=== PATIENT | female | born 1995 | race Caucasian/White ===

== ENCOUNTER 2018-09-13 05:31 | Outpatient (CLI) | payer BC ==
[~2018-09-13] VITALS: Ht 165.1 cm; Wt 104.3 kg
[2018-09-13] MEDS ORDERED: ASPI-789 PO (09:37)
[2018-09-13] MEDS ORDERED: FAMO20TA3 PO (09:37)
[2018-09-13] MEDS ORDERED: COLE1TAB PO (09:37)
[2018-09-14] MEDS ORDERED: ACET-77 PO (09:19)
[2018-09-14] MEDS ORDERED: OXC5T PO (09:19)
[2018-09-14] MEDS ORDERED: NAPR-1067 PO (09:19)
[2018-09-14] MEDS ORDERED: PROM25TA14 PO (09:26)
== END 2018-09-13 10:09 | disposition home or self-care (01) ==
LOC: PREOP 05:31
PROVIDERS: ATTEND Obstetrics & Gynecology
DX: Z01.818 Encounter for other preprocedural examination (principal)

== ENCOUNTER 2018-09-14 06:08 | Day surgery (SDC) | payer BC ==
[~2018-09-14] VITALS: Ht 165.1 cm; Wt 104.3 kg
[2018-09-14] VITALS (10 sets, daily range): BP systolic 118–142; BP diastolic 72–88
[~2018-09-14 06:08] MED LIST: ASPI-789 PO; COLE1TAB PO; FAMO20TA3 PO
--- OUTSIDE RECORDS SUMMARY | 2018-09-14 06:12 | XMS REPORT ---
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 Apr, 0 89288804 Problem Allergic urticaria 708.0 Apr, 0 91351468 Problem Tobacco use 305.1 Dec, 0 947091071 Problem Knee MCL sprain 844.1 14 Sep, 2012 0 31742140 Problem History of seasonal allergies Z88.9 Jul, 0 961179186 Problem Knee MCL sprain S83.419A 14 Sep, 2012 0 03266286 Problem History of seasonal allergies V15.09 Jul, 0 Problem Breakthrough bleeding on OCPs 626.6 Jun, 0 81162025 Problem Dysmenorrhea N94.6 Active 751191886 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 Apr, 0 726301534 Problem Irregular menses N92.6 Active 70383347 Problem Allergic angioedema 995.1 Apr, 0 498168553 Problem Breakthrough bleeding on OCPs N92.1 Jun, 0 01585260 Problem Patellofemoral pain syndrome M22.2X9 Dec, 0 274154880 Problem Dyspareunia in female N94.10 Active 17632165 Problem Cervical motion tenderness N94.9 Active 446243632 ALLERGIES Substance Reaction Event Type Date Status Ibuprofen hives Drug Allergy Jun, Active Amoxicillin hives Drug Allergy Jun, Active ENCOUNTERS Encounter Location Date Diagnosis [facility] [address] [place] [phone] Jun, Pelvic inflammatory disease N73.9 ; Irregular menses N92.6 ; Dysmenorrhea N94.6 ; Pelvic pain in female R10.2 ; Vaginal dryness N89.8 ; Dyspareunia in female N94.10 and Cervical motion tenderness N94.9 [facility] [address] [facility] [place] [address] May, Abdominal pain, unspecified abdominal location R10.9 ; Nausea R11.0 and Chronic diarrhea K52.9 [facility] [id number], [place] [address] Apr, [facility] [id number] [place] [phone] Apr, [place] [id number] [place] [phone] Mar, [place] [address] [id number] [place] [phone] Mar, IMMUNIZATIONS No Known Immunizations SOCIAL HISTORY Never Assessed REASON FOR VISIT Period concerns, Painful Carrick, Admits that her pain is much worse during her period time., With sex, the pain is there during the entire process, but muc h worse with deep thrusting and after having an orgasm. Denies taking anything to relieve symptoms. PLAN OF CARE Activity Details Follow Up prn Reason: VITAL SIGNS Height 65.5 in 2018-06-09 Weight 232 lbs 2018-06-09 Heart Rate 103 bpm 2018-06-09 Oximetry 98 % 2018-06-09 BMI 38.02 kg/m2 2018-06-09 Blood pressure systolic 116 mmHg 2018-06-09 Blood pressure diastolic 70 mmHg 2018-06-09 MEDICATIONS Medication Instructions Dosage Frequency Start Date End Date Duration Status Intrarosa 6.5 MG Vaginal Once a day 1 vaginal insert at bedtime 24h Jun, 30 day(s) Active Colestipol HCl 1 GM Orally 2 times a day 1 tablet 12h 20 May, 2018 90 days Active Sprintec 28 0.25-35 MG-MCG Orally Once a day 1 tablet 24h Jun, 84 days Active Excedrin Migraine 250-250-65 MG Orally PRN 2 tablets 30 day(s) Unknown Pepcid 20 MG Orally PRN 1 tablet at bedtime 30 day(s) Unknown Zofran 8 MG Orally every 8 hours prn nausea 1 tablet May, 7 days Unknown Zithromax 500 MG Orally one time 2 tablet Jun, 1 days Active RESULTS No Results PROCEDURES Procedure Date Ordered Result Body Site N.GONORRHOEAE, DNA, AMP PROB June 09, 2018 CHYLMD TRACH, DNA, AMP PROBE June 09, 2018 INSTRUCTIONS MEDICATIONS ADMINISTERED No Known Medications MEDICAL (GENERAL) HISTORY Type Description Date Medical History acid reflux Medical History migraine headaches Surgical History cholecystectomy
--- OUTSIDE RECORDS SUMMARY | 2018-09-14 06:13 | XMS REPORT | Continuity of Care Document ---
Author Organization Unknown Address Unknown Allergies Active Description Code Type Severity Reaction Onset Reported/Identified Relationship to Patient Clinical Status Yes ibuprofen Drug N/A Hives Yes ibuprofen Drug N/A N/A Yes ibuprofen Drug N/A Hives Yes ibuprofen Drug N/A N/A Medications Medication Packaging Start Date Stop Date Route Dosage Sig ethinyl estradiol-norethindrone 07/21/2016 PO Nortrel 1/35 oral tablet ondansetron 07/21/2016 08/20/2016 SL 8 mg / 1 tab omeprazole 08/21/2016 08/27/2016 PO 40 mg / 1 cap omeprazole 08/27/2016 09/23/2016 PO 40 mg / 1 cap docusate-senna 09/15/2016 09/22/2016 PO Senokot S 50 mg-8.6 mg oral tablet omeprazole 09/23/2016 PO 40 mg / 1 cap Problems Date Dx Coded Attending Type Code Diagnosis Diagnosed By 07/21/2016 eNelima Davila Final R10.11 Right upper quadrant pain 08/22/2016 Zhou Polo Final F17.210 Nicotine dependence, cigarettes, uncomplicated 08/22/2016 Zhou Polo Final K29.70 Gastritis, unspecified, without bleeding 08/22/2016 Zhou Polo Final K31.9 Disease of stomach and duodenum, unspecified 08/22/2016 Zhou Polo Final R10.11 Right upper quadrant pain 08/22/2016 Zhou Polo Final R10.13 Epigastric pain 08/22/2016 Zhou Polo Final R11.0 Nausea 09/15/2016 Shahram Mead Final E66.9 Obesity, unspecified 09/15/2016 Shahram Mead Final F17.210 Nicotine dependence, cigarettes, uncomplicated 09/15/2016 Shahram Mead Admitting K80.50 Calculus of bile duct without cholangitis or cholecystitis w 09/15/2016 Shahram Mead Final K81.1 Chronic cholecystitis 09/15/2016 Shahram Mead Final Z68.30 Body mass index (BMI) 30.0-30.9, adult Procedures Code Description [place] [address] Intravenous infusion, hydration; each ad NATONY GOINS 07/21/2016 70924 Therapeutic, prophylactic, or diagnostic ANTONY GOINS 07/21/2016 22631 Therapeutic, prophylactic, or diagnostic ANTONY GOINS 07/21/2016 76140 Therapeutic, prophylactic, or diagnostic BRISEIDA ANTONY 07/21/2016 82148 Emergency department visit for the evalu ANTONY GOINS 07/21/2016 90372 Esophagogastroduodenoscopy, flexible, tr ANTONY GOINS 08/22/2016 30913 Laparoscopy, surgical; cholecystectomy ANTONY GOINS 09/15/2016 Results Test Result Range COMPREHENSIVE METABOLIC PANEL - 07/21/16 13:05 Sodium 141 mmol/L 135-145 Potassium 4.1 mmol/L 3.6-5.0 Chloride 104 mmol/L 101-111 Carbon Dioxide, Total 22 mmol/L 21-31 Glucose Level 101 mg/dL 70-100 BUN 8 mg/dL 6-20 Creatinine 0.5 mg/dL 0.5-1.2 Calcium 9.3 mg/dL 8.5-10.5 Total Protein 7.8 g/dL 6.0-8.0 Albumin 4.5 g/dL 3.2-5.5 Alkaline Phosphatase 70 U/L 42-121 AST (SGOT) 15 U/L 10-42 ALT (SGPT) 12 U/L 10-60 Total Bilirubin 0.2 mg/dL 0.2-1.0 Calculated GFR >60.0 mL/min/1.73sq >60 Anion Gap 15 mmol/L NRG LIPASE - 07/21/16 13:05 Lipase 38 U/L 8-57 URINALYSIS, CULTURE IF INDICATED - 07/21/16 13:18 Color, UA LIGHT YELLOW YELL Clarity, Urine CLEAR Clear Glucose, Urine NEGATIVE mg/dL NEG Bilirubin, UA NEGATIVE NEG Ketones, UA NEGATIVE mg/dL NEG Specific [place], UA 1.020 1.003-1.030 Blood, UA NEGATIVE NEG pH, UA 8.0 5.0-9.0 Protein, UA NEGATIVE mg/dL NEG Urobilinogen, UA NORMAL mg/dL NORM Nitrites, UA NEGATIVE NEG Leukocyte Esterase, UA NEGATIVE NEG Urine Culture Indicated NO CULTURE NEEDED NOCULT HCG, URINE QUAL - 07/21/16 13:18 HCG, Urine Qual NEGATIVE NEG Specific [place], UA 1.020 1.003-1.030 Surgical Pathology - 08/22/16 11:33 SURGICALPATH Diagnosis over-read by Ian Best MD. NRG HCG, URINE QUAL - 09/15/16 06:23 HCG, Urine Qual NEGATIVE NEG Specific [place], UA 1.038 1.003-1.030 Surgical Pathology - 09/15/16 10:32 SURGICALPATH Diagnosis over-read by Manuel Moncada MD. NRG GC/CHLAMYDIA (SWAB OR URINE)-RAPID - 06/09/18 16:31 CHLAMYDIA TRACHOMATIS RNA, TMA NOT DETECTED NOT DETECTED NEISSERIA GONORRHOEAE RNA, TMA NOT DETECTED NOT DETECTED COMMENT NRG Encounters ACCT No. Visit Date/Time Discharge Status Pt. Type Provider Facility Loc./Unit Complaint [id number] 08/20/2018 08:00:00 08/20/2018 23:59:59 CLS Outpatient ANTHONY BRUCE [facility] [id number] 06/09/2018 14:15:00 Document Registration [id number] 09/23/2016 15:28:13 09/23/2016 23:59:59 CLS Outpatient Shahram Mead General Surgery [facility] post lap juan miguel 09/15/16 [id number] 08/22/2016 09:03:50 08/22/2016 23:59:59 CLS Outpatient Shahram Mead General Surgery [facility] GB- FU [id number] 08/21/2016 13:51:58 08/21/2016 23:59:59 CLS Outpatient Zhou [facility]o [facility] New Consult/bloody stool/ABD pain [id number] 08/05/2016 15:38:00 08/05/2016 23:59:59 CLS Outpatient Danilo General Surgery [facility] [id number] 08/01/2016 00:00:00 08/01/2016 23:59:59 CLS Outpatient Scanned Documents [id number] 07/23/2016 10:32:24 07/23/2016 23:59:59 CLS Outpatient Shahram Mead General Surgery [facility] gallbladder [id number] 09/15/2016 05:52:00 09/15/2016 23:59:00 DIS Outpatient [facility] HEATHER LS JUAN MIGUEL [id number] 08/22/2016 06:46:00 08/22/2016 23:59:00 DIS Outpatient Zhou Polo [facility] ENC EGD [id number] 07/29/2016 13:07:00 07/30/2016 11:46:00 DIS Outpatient [facility] RAD NM HEPATOBILIARY-GALLBLADDER E [id number] 07/21/2016 12:09:00 07/21/2016 15:39:00 DIS Emergency Neelima Davila [facility] ER Abdominal Pain
[2018-09-14] MEDS ORDERED: LIDOCAINE PF 2% 5 ML (XYLOCAINE) VIAL ONE (06:38)
[2018-09-14] MEDS ORDERED: fentaNYL INJECTION 100 MCG/2 ML AMP ONE ×2 (06:38→08:14)
[2018-09-14] MEDS ORDERED: ONDANSETRON 4 MG/2 ML (SDV) Z0FRAN ONE (06:38)
[2018-09-14] MEDS ORDERED: MIDAZOLAM 2 MG/2 ML (VERSED) VIAL ONE (06:38)
[2018-09-14] MEDS ORDERED: ROCURONIUM 10 MG/ML 5 ML SYRINGE IV ONE (06:38)
[2018-09-14] MEDS ORDERED: DEXAMETHASONE 10 MG/ML (DECADRON) 1 ML VIAL ONE (06:38)
[2018-09-14] MEDS ORDERED: proPOfol 200 MG/20 ML (DIPRIVAN) VIAL IV ONE (06:38)
[2018-09-14] MEDS ORDERED: SCOPOLAMINE 1.5 MG (TRANSDERM-SCOP) PATCH TOP ONE (06:45)
[2018-09-14] MEDS ORDERED: ONDANSETRON 4 MG/2 ML (SDV) Z0FRAN IV ONE (06:45)
[2018-09-14] MEDS ORDERED: ceFAZolin INJECTION 1,000 MG in WATER (STERILE) FOR INJECTION 10 ML IV ONE (06:45)
[2018-09-14] MEDS ORDERED: FAMOTIDINE 20MG/2ML IV (PEPCID) IV ONE (06:45)
--- NOTE | 2018-09-14 06:46 | History & Physical-Surgical ---
HPO-Surgical History of Present Illness Chief Complaint: Chronic pelvic pain, not improved with conservative treatments Diagnosis/Surgical Indication: ENDOMETRIOSIS Procedure: LAPAROSCOPY-RESECTION OF ENDOMETRIOSIS, AMPARO, OIP, POSS APPY, CHROMOTUBATION Date of Surgery: Sep 14, 2018 Weight (Pounds): 230 Weight (Ounces): 0.0 Height (Feet): 5 Height (Inches): 5.00 Allergies and Home Medications Allergies Coded Allergies: amoxicillin (Verified Allergy, Mild, HIVES, 09/13/18) ibuprofen (Verified Allergy, Mild, HIVES, 09/13/18) Home Medications Aspirin/Acetaminophen/Caffeine 1 Each Tablet, 2 EACH PO Q6-8HR PRN for Headache, (Reported) Colestipol HCl 1 Gm Tablet, 1 GM PO DAILY, (Reported) Famotidine 20 Mg Tablet, 20 MG PO BID PRN for HEARTBURN, (Reported) Patient Home Medication List Home Medication List Reviewed: Yes Past Mkurcfx-Wuublu-Rapsdo Hx Patient Social History Marrital Status: Number of Children: 0 Number of living children: 0 Employed/Student: employed Alcohol Use: Denies Use Smoking Status: Light Tobacco Smoker Cigaretts per day: 4 Type Used: Cigarettes 2nd Hand Smoke Exposure: Yes Recent Foreign Travel: No Contact w/other who traveled: No Recent Hopitalizations: No Seasonal Allergies Seasonal Allergies: Yes Surgeries Yes (WISDOM TEETH ) Gallbladder Respiratory No Cardiovascular No Neurological Yes Headaches /Migraines Reproductive System Sexually Transmitted Disease: No HIV/AIDS: No Female Reproductive Disorders: Menstrual Problems, Endometriosis, Ovarian Cyst Genitourinary Yes Kidney Stones, UTI-Chronic Gastrointestinal Yes Gastroesophageal Reflux, Chronic Diarrhea Musculoskeletal No Endocrine History of Endocrine Disorders: No HEENT History of HEENT Disorders: No Loss of Vision: Bilateral Hearing Impairment: Denies Cancer No Psychosocial History of Psychiatric Problem: Yes Behavioral Health Disorders: Anxiety, Depression Integumentary History of Skin or Integumenta: No Blood Transfusions History of Blood Disorders: Yes (HX ANEMIA) Adverse Reaction to a Blood Tr: No (N/A) Exam Vital Signs See RNo Notes General Appearance: Alert, Oriented X3 Respiratory: Clear to Auscultation, Normal Air Movement Cardiovascular: Regular Rate, Normal S1, Normal S2 Abdominal: Normal Bowel Sounds Assessment/Plan Assessment and Plan Chronic pelvic pain/endometriosis Plan laparoscopy with resection endometriosis and OIP. This may include lysis of adhesions, appendectomy, etc Will plan chromotubation due to desire for . Risks of surgery include bleeding, infection, injury to bowel, bladder and ureter. There is a risk of anesthesia and blood clots. preoperative antibiotics and prophylactic SVDs will be used. She had severe nausea and emesis following her cholecystectomy and required an overnight stay. Discussed this at preop with anesthesia. Has allergy to amoxicillin and ibuprofen but can take ancef/cephalosporins and naproxen. Will uses perioperative toradol and then send home with naproxen. Consents have been signed. Admission Diagnosis Admission Status: Other (Same Day Surgery) GUTIERREZ PALMA DO Sep 14, 2018 06:46
[2018-09-14 06:55] LABS: BASOPHILS % (AUTO) 0 % (0-10); EOSINOPHILS # (AUTO) 0.2 10^3/uL (0.0-0.3); EOSINOPHILS % (AUTO) 2 % (0-10); HEMATOCRIT 36 % (35-52); HEMOGLOBIN 11.7 G/DL (11.5-16.0); LYMPHOCYTES # (AUTO) 3.3 X 10^3 (1.0-4.0); LYMPHOCYTES % (AUTO) 26 % (12-44); MEAN CORPUSCULAR HEMOGLOBIN 21 PG (25-34); MEAN CORPUSCULAR HGB CONC 33 G/DL (32-36); MEAN CORPUSCULAR VOLUME 65 FL (80-99); MEAN PLATELET VOLUME 9.2 FL (7.4-10.4); MONOCYTES # (AUTO) 0.6 X 10^3 (0.0-1.0); MONOCYTES % (AUTO) 5 % (0-12); NEUTROPHILS # (AUTO) 8.5 X 10^3 (1.8-7.8); NEUTROPHILS % (AUTO) 67 % (42-75); PLATELET COUNT 441 10^3/uL (130-400); RED CELL DISTRIBUTION WIDTH 15.4 % (10.0-14.5); WHITE BLOOD COUNT 12.7 10^3/uL (4.3-11.0)
[2018-09-14] MEDS: LACTATED RINGERS 1,000 ML IV PRN ×2 (07:01→08:30)
--- NOTE | 2018-09-14 07:15 | NUR ---
PHUONG RT ON FLOOR AND INSTRUCT ON INCENTIVE SPIROMETRY Addendum: 09/14/18 at 0745 by GRICELDA CHILD RN TIME SHOULD BE 0734 NOT 0757
[2018-09-14] MEDS ORDERED: BUPIVACAINE 0.25% 30 ML (SENSORCAINE) VIAL ONE (07:20)
--- NOTE | 2018-09-14 07:33 | Progress Note-Pre Operative ---
Pre-Operative Progress Note H&P Reviewed The H&P was reviewed, patient examined and no changes noted. Date Seen by Provider: Sep 14, 2018 Time Seen by Provider: 07:25 Date H&P Reviewed: Sep 14, 2018 Time H&P Reviewed: 07:00 Pre-Operative Diagnosis: chronic pelvic pain, endometriosis GUTIERREZ PALMA DO Sep 14, 2018 07:32
--- NOTE | 2018-09-14 07:36 | NUR ---
DR PALMA ON FLOOR AND THIS RN VERIFIED THAT CONSENT SHOULD HAVE APPENDECTOMY ON IT AND THAT PATIENT IS ALLERGIC TO AMOXICILLIN AND ANCEF 1G ORDERED. DR. PALMA GAVE VERBAL ORDER THAT APPENDECTOMY IS TO BE ON CONSENT AND SPOKE WITH PATIENT ABOUT IT WELL GAVE VERBAL ORDER THAT PATIENT MAY HAVE ANCEF 1G.
[2018-09-14] MEDS ORDERED: METHYLENE BLUE 0.5% (PROVAYBLUE) 50 mg/10 ml vial IV ONE (07:44)
[2018-09-14] MEDS ORDERED: GLYCOPYRROLATE 0.2 MG/ML (ROBINUL) 2 ML VIAL ONE ×2 (08:11→08:44)
[2018-09-14] MEDS ORDERED: SEVOFLURANE (ULTANE) 15 ML INHAL SOLN ONE ×3 (08:11→08:46)
[2018-09-14] MEDS ORDERED: NEOSTIGMINE 1 MG/ML 5 ML SYRINGE ONE (08:44)
[2018-09-14] MEDS ORDERED: KETOROLAC 30 MG/ML VIAL IVP ONE (08:45)
--- NOTE | 2018-09-14 08:50 | Operative Report ---
Operative Report Date of Procedure/Surgery Sep 14, 2018 Surgeon (s) GUTIERREZ PALMA DO Environmental Remediation Consultant (s): NA Post-Operative Diagnosis stage 1 endometriosis Procedure Performed Laparoscopy with resecetion/ fulgaration of endometrial implant, chromopertubation Description of Procedure Anesthesia Type: General Estimated blood loss (mL): minimal Specimen(s) collected/removed None Description of the Procedure With informed consent the patient was taken to the operating room where general anesthesia was found to be adequate. She was prepped and draped in the usual sterile fashion in the dorsolithotomy position. A catheter was placed in the bladder to be removed in the recovery room. A speculum was placed in the vagina and the cervix was grasped with a tenaculum and the cervix was gently dilated with Shan dilators and a Vanessa uterine manipulator was placed in the uterus to provide a means of manipulation of the uterus. Attention was now turned to the abdomen and the umbilicus was injected with 0.25% Marcaine and a 4 mm skin incision was made with a scalpel. The Veress needle was inserted and intraabdominal placement was confirmed with a saline drop test and a drop in pressure. The abdomen was then insufflated with warmed CO2 gas to a maximum pressure of 15 mmHg. The 5 mm trocar under direct visualiz ation with the PersistIQview. The camera was now inserted and a survey of the pelvis was done. The below mentioned findings were noted. I then placed two additional trocars in the left lower quadrant, lateral to the rectus muscles and avoiding the inferior epigastric vessels. I then used the Harmonic scalpel to fulgurate the endometriosis on the left uterosacral ligament and the culdesac. I could not elevated the implant on the uterosacral enough to excise it because of scarring. There was not any adhesions noted. the appendix appeared normal. Now a chromotubation was done. The left tube spilled immediately. The right tube seemed to have a blockage as it spilled to the mid tube, but then stopped. However, when I temporarily occluded the left tube with a grasper, the right tube eventually spilled, suggesting a stricture or spasm of the tube. The pelvis was now irrigated. There was good hemostasis. The gas and instruments were removed from the abdomen and the skin closed with Dermabond. The instruments were removed from the uterus and vagina. There was minimal bleeding. Bandages were placed on the abdominal incisions. The patient was awakened to the recovery room in stable condition. Findings of the Procedure endometrial implants and "cigarette jorge" in the culdesac and on the left uterosacral ligament. Benign perituabal cysts Left tubal patency Right tube did not initially appear patent, but then spilled dye once the left tube was temporarily occluded Allergies and Home Medications Allergies Coded Allergies: ibuprofen (Verified Allergy, Mild, HIVES, 09/13/18) amoxicillin (Verified Allergy, Unknown, 09/14/18) swollen lips, hives Home Medications Acetaminophen 500 Mg Tablet, 1,000 MG PO Q8HR Prescribed by: GUTIERREZ PALMA on 09/14/18918 Aspirin/Acetaminophen/Caffeine 1 Each Tablet, 2 EACH PO Q6-8HR PRN for Headache, (Reported) Colestipol HCl 1 Gm Tablet, 1 GM PO DAILY, (Reported) Famotidine 20 Mg Tablet, 20 MG PO BID PRN for HEARTBURN, (Reported) Naproxen Sodium 550 Mg Tablet, 550 MG PO BID Prescribed by: GUTIERREZ PALMA on 09/14/18918 Oxycodone Hcl 5 Mg Tab, 5 MG PO Q4HR PRN for PAIN-SEVERE Prescribed by: GUTIERREZ PALMA on 09/14/18918 Promethazine HCl 25 Mg Tablet, 25 MG PO Q6H PRN for NAUSEA/VOMITING Prescribed by: GUTIERREZ PALMA on 09/14/18 09 Patient Home Medication List Home Medication List Reviewed: GUTIERREZ Perea DO Sep 14, 2018 08:50
[2018-09-14] MEDS ORDERED: HYDROmorphone 2 MG/ML VIAL (DILAUDID) IV ONE (09:15)
[2018-09-14] MEDS ORDERED: MEPERIDINE (DEMEROL) INJ 50 MG/ML IVP ONE (09:15)
[2018-09-14] MEDS ORDERED: PROMETHAZINE INJ 25 MG/ML (PHENERGAN) AMP IVP ONE (09:15)
[2018-09-14] MEDS ORDERED: ONDANSETRON 4 MG/2 ML (SDV) Z0FRAN IVP PRN (09:15)
[2018-09-14] MEDS ORDERED: morphine INJ 10 MG/ML 1ML (SYR OR VIAL) IVP ONE (09:15)
[2018-09-14] MEDS ORDERED: morphine INJ 10 MG/ML 1ML (SYR OR VIAL) ONE (09:19)
[2018-09-14] MEDS ORDERED: NAPR-1067 PO (09:19)
[2018-09-14] MEDS ORDERED: OXC5T PO (09:19)
[2018-09-14] MEDS ORDERED: ACET-77 PO (09:19)
--- NOTE | 2018-09-14 09:21 | Discharge Inst-Women's Service ---
Discharge Inst-Women's Serv Depart Medication/Instructions New, Converted or Re-Newed RX: RX on Chart Final Diagnosis endometriosis chronic pelvic pain patent tubes peritubal cysts Consults/Follow Up Additional Follow Up: Yes (1 -[address] Gonzalez) Activity Activity: Activity as Tolerated Driving Instructions: No Driving for 24 Hours NO SMOKING: NO SMOKING Nothing Inside Vagina: No Douching, No [place], No Tampons Diet Discharge Diet: No Restrictions Symptoms to Report to : Bleeding Excessive, Pain Increased, Fever Over 101 Degrees F, Vaginal Bleeding Increase, Pain/Pressure in Shoulder, Vaginal Discharge Foul For Any Problems or Questions: Contact Your Physician Skin/Wound Care Infection Signs and Symptoms: Increased Redness, Foul Odor of Wound, Increased Drainage, Skin Itchy or Has a Rash, Increased Swelling, Temperature Above 101 F Operative Area Clean and Dry: Keep Incision Clean/Dry, You May Remove Bandage (Remove after three days, or if soiled or wet) Stitches/Sohan/Dermabond: Dermabond Bathing Instructions: GUTIERRZE Larose DO Sep 14, 2018 09:21
[2018-09-14] MEDS ORDERED: PROM25TA14 PO (09:26)
[2018-09-14] MEDS ORDERED: ACETAMINOPHEN 500 MG TAB (TYLENOL) PO SCH (14:00)
[2018-09-14] MEDS ORDERED: NAPROXEN 250 MG (NAPROSYN) TABLET PO SCH (15:00)
--- NOTE | 2018-09-14 15:00 | Anesthesia-General Post-Op ---
General Patient Condition Mental Status/LOC: Same as Preop Cardiovascular: Satisfactory Nausea/Vomiting: Absent Respiratory: Satisfactory Pain: Controlled Complications: Absent Post Op Complications Complications None Follow Up Care/Instructions Patient Instructions None needed. Anesthesia/Patient Condition Patient Condition Patient was seen this morning after the procedure and she was doing well, no complaints, stable vital signs, no apparent adverse anesthesia problems. DERECK CLEMENTE DO Sep 14, 2018 15:00
== END 2018-09-14 11:15 | disposition home or self-care (01) ==
LOC: SDC 06:08
PROVIDERS: ATTEND Obstetrics & Gynecology
DX: N80.0 Endometriosis of uterus (principal); N80.3 Endometriosis of pelvic peritoneum; Z88.1 Allergy status to other antibiotic agents; F17.210 Nicotine dependence, cigarettes, uncomplicated; K21.9 Gastro-esophageal reflux disease without esophagitis; K52.9 Noninfective gastroenteritis and colitis, unspecified; Z87.442 Personal history of urinary calculi; G43.909 Migraine, unspecified, not intractable, without status migrainosus; F41.9 Anxiety disorder, unspecified; F32.9 Major depressive disorder, single episode, unspecified; E66.9 Obesity, unspecified; Z68.38 Body mass index [BMI] 38.0-38.9, adult; Z79.82 Long term (current) use of aspirin; Z79.899 Other long term (current) drug therapy; Z11.2 Encounter for screening for other bacterial diseases
CPT/HCPCS: 36415; 84703; 85025; 86850; 86900; 86901; 87081; 94664

== ENCOUNTER → 2018-12-23 | Outpatient (CLI) ==
[~2018-12-23] MED LIST changes: +ACET-77 PO; +NAPR-1067 PO; +OXC5T PO; +PROM25TA14 PO
== END ==
LOC: LABNPT 12:05 → MERGE 12:05
PROVIDERS: ATTEND Obstetrics & Gynecology
DX: O26.899 Other specified pregnancy related conditions, unspecified trimester (principal); R50.9 Fever, unspecified; Z3A.00 Weeks of gestation of pregnancy not specified

== ENCOUNTER → 2019-02-09 | Outpatient (CLI) | payer BC ==
--- NOTE | 2019-02-09 12:28 | Diagnostic Imaging Report ---
INDICATION: survey. TECHNIQUE: Multiple real-time grayscale images were obtained over the gravid uterus. COMPARISON: There are no prior studies available for comparison. FINDINGS: There is a single live fetus in breech presentation. heart motion was noted and a rate of 152 BPM was recorded. There is dilatation of the renal pelvis on the left. The pelvis measures approximately 6 mm (normal 5 mm or less). The reason for the dilatation of the left renal pelvis is not certain. There is no sign of ascites. No other abnormality is noted. The placenta is anterior and there is no previa. The amniotic fluid volume is within normal limits. The growth parameters are fairly uniform. The cervix was identified and measures 3.3 cm in length. IMPRESSION: 1. There is a single live fetus of approximately 20 weeks 3 days gestation +/- 1.5 weeks. The EDC is June 26, 2019. 2. There is slight dilatation of the renal pelvis on the left. The reason for this is not certain. A high-risk OB consult should be considered. 3. There is no other abnormality identified. 4. The growth parameters are fairly uniform. Biometrical measurements are as follows: Biparietal 4.75 cm, age 20 weeks 3 days. Head circumference 17.92 cm, age 20 weeks 3 days. Abdominal circumference 15.25 cm, age 20 weeks 4 days. Femur length 3.19 cm, age 20 weeks 0 days. Sonographic estimate age: 20 weeks 3 days. Sonographic estimated date of delivery: 06/26/2019. Estimated Weight: 341 gm (+/- 50 gm). LMP percentile: 75%. heart rate: 152 beats per minute. number: 1 of 1. Dictated by: Dictated on workstation # [id number]
== END ==
LOC: RAD 09:54
PROVIDERS: ATTEND Nurse Practitioner Women's Health
DX: Z36.89 Encounter for other specified antenatal screening (principal); Z3A.20 20 weeks gestation of pregnancy
CPT/HCPCS: 76805

== ENCOUNTER 2019-03-16 19:34 | Outpatient (CLI) | payer BC ==
[~2019-03-16] VITALS: Ht 165.1 cm; Wt 104.6 kg
--- NOTE | 2019-03-16 19:40 | NUR ---
EVELYN PATE presented to unit via ambulation from ED, accompanied by s.o. and friend, with c/o LEAKING FLUID. EVELYN PATE weighed, gowned, voided, and to bed. EFHM and TOCO applied, VS taken. EVELYN PATE oriented to bed controls, call light, TV, heat, and A/C controls.
--- NOTE | 2019-03-16 19:55 | NUR ---
Pt pants swabbed with amniotest, slightly blue tip noted after swab. Pt assisted to bed. Amniotest performed vaginally, slightly blue tip noted after swab. No visible fluid noted on pad underneath patient or on patient's labia. Had pt bear down and cough, still no fluid noted. Second amniotest performed vaginally. Tip completely yellow after swab. Still no fluid noted. Dr. Jaime informed of results. planning to do spec exam at bedside.
--- NOTE | 2019-03-16 20:06 | NUR ---
Spec exam performed per Dr. Jaime. Wet prep sent to lab.
--- NOTE | 2019-03-16 20:43 | NUR ---
Lab called with results of wet prep. Informed this RN that results are all negative. Results reported to Dr. Jaime. Orders received for discharge.
[2019-03-16] MEDS ORDERED: PREN-142 PO (20:54)
[2019-03-16 21:00] VITALS: BP 129/93
--- NOTE | 2019-03-16 21:05 | NUR ---
Discharge instructions discussed with patient. Encouraged patient to call with any concerns. No questions or concerns voiced at time. Signature sheet signed, placed on chart. Offered wheelchair, denied per pt. Pt ambulating off unit to private vehicle with s.o. and friend at side. No signs of distress noted.
--- NOTE | 2019-03-17 08:10 | Physician Query-Final Dx ---
ADRIENNE WINN 03/17/19 0810: Clinic Account Progress/Dx Physician Query: Please give diagnosis Please include # weeks gestation Date of Service Mar 16, 2019 at 19:34 JUDY GARCIA MD 03/17/19 1735: Clinic Account Progress/Dx DIAGNOSIS: Diagnosis Pulse labor at 26 weeks gestation ADRIENNE WINN Mar 17, 2019 08:10 JUDY KRUGER MD Mar 17, 2019 17:35 POS
== END 2019-03-16 21:05 | disposition home or self-care (01) ==
LOC: WSo 19:34 → LDRP 19:34 → WSo 21:05
PROVIDERS: ATTEND Obstetrics & Gynecology
DX: O60.02 Preterm labor without delivery, second trimester (principal); Z3A.26 26 weeks gestation of pregnancy
CPT/HCPCS: 87210; 99214

== ENCOUNTER 2019-05-09 16:59 | Outpatient (CLI) | payer BC ==
[~2019-05-09] VITALS: Ht 165.1 cm; Wt 109.0 kg
[~2019-05-09 16:59] MED LIST changes: -ACET-77 PO; +ACET-78 PO; +PREN-142 PO
--- NOTE | 2019-05-09 17:05 | NUR ---
EVELYN PATE presented to unit via AMBULATORY from ED, accompanied by , with c/o UPPER ABD PAIN. EVELYN PATE weighed, gowned, voided, and to bed. EF and TOCO applied, VS taken. EVELYN PATE oriented to bed controls, call light, TV, heat, and A/C controls.
[2019-05-09 17:30] VITALS: BP 133/83
--- NOTE | 2019-05-09 17:45 | NUR ---
DR SALEH CALLED BY THIS RN WITH PT REPORT. PT CO CONSTANT SHARP EPIGASTRIC PAIN THAT WRAPS TO MIDDLE OF HER BACK. DENIES UTI S/S, PT ALSO CO NAUSEA TODAY BUT DENIES OTHER PREECLAMPSIA S/S, VSS. URINE DIPSTICK RESULTS READ TO DR SALEH. DR SALEH SAYS TO PO HYDRATE, GIVE PT PERCOCET FOR PAIN, ZOFRAN FOR NAUSEA, AND PEPCID PO. CLEAR LIQUID DIET FOR 24 HRS, FOLLOW UP WITH DR PALMA TOMORROW FOR POSSIBLE ULTRASOUND. ULTRASOUND UNAVAILABLE TO US AFTER HOURS FOR THIS CASE (NOT OB RELATED).
[2019-05-09 17:50] VITALS: BP 128/75
[2019-05-09] MEDS ORDERED: oxyCODONE/APAP 5/325MG (PERCOCET 5) TABLET PO ONE (18:00)
[2019-05-09 18:10] VITALS: BP 133/77
[2019-05-09] MEDS ORDERED: ACETAMINOPHEN 500 MG TAB (TYLENOL) PO NR (18:15)
[2019-05-09] MEDS ORDERED: FAMOTIDINE 20 MG (PEPCID) TABLET PO NR (18:16)
[2019-05-09] MEDS ORDERED: ONDANSETRON 4 MG (ZOFRAN) ORAL DISSOLVE TAB PO NR (18:16)
[2019-05-09 18:35] VITALS: BP 120/60
--- NOTE | 2019-05-09 18:39 | NUR ---
SINCE RN HAD CALLED DR SALEH, UC NOTED 2-[address] SALEH WITH UPDATE TO NOTIFY OF UC. DR SALEH ORDERS TO GIVE IV FLUIDS AND 1 DOSE OF TERB.
[2019-05-09] MEDS ORDERED: LACTATED RINGERS 1,000 ML IV SCH (18:45)
[2019-05-09] MEDS ORDERED: TERBUTALINE INJ 1 MG/ML (BRETHINE) AMP SC NR (18:48)
[2019-05-09 18:55] VITALS: BP 132/81
--- NOTE | 2019-05-09 19:20 | NUR ---
REPORT GIVEN TO ALTA CASTILLO
--- NOTE | 2019-05-09 20:15 | NUR ---
Pt is feeling better and would like to go home. Discharge order received.
--- NOTE | 2019-05-09 20:28 | NUR ---
Discharge instructions given. Verbalized understanding. discharged home with S/O.
--- NOTE | 2019-05-10 08:35 | Physician Query-Final Dx ---
ADRIENNE WINN 05/10/19 0835: Clinic Account Progress/Dx Physician Query: Please give diagnosis Please include # weeks gestation Date of Service May 09, 2019 at 16:59 TEZ SALEH DO 05/11/19 0628: Clinic Account Progress/Dx DIAGNOSIS: Diagnosis Intrauterine at 32 weeks 2. Pelvic Pain 3. Hyperemesis 4. Dehydration ADRIENNE WINN May 10, 2019 08:35 TEZ SALEH DO May 11, 2019 06:28
== END 2019-05-09 20:30 | disposition home or self-care (01) ==
LOC: WSo 16:59 → LDRP 16:59 → WSo 20:30
PROVIDERS: ATTEND Obstetrics & Gynecology
DX: O21.1 Hyperemesis gravidarum with metabolic disturbance (principal); R10.2 Pelvic and perineal pain; Z3A.32 32 weeks gestation of pregnancy
CPT/HCPCS: 96372; 99213

== ENCOUNTER 2019-06-05 | Inpatient (IN) | payer MEDICAID ==
[~2019-06-05] VITALS: Ht 165 cm; Wt 111.4 kg
[2019-06-05] VITALS (72 sets, daily range): BP systolic 96–166; BP diastolic 52–93
--- NOTE | 2019-06-05 00:05 | NUR ---
EVELYN PATE presented to unit via from ED, accompanied by s/o, with c/o CONTRACTIONS 36 05/13. EVELYN PATE weighed, gowned, voided, and to bed. EFHM and TOCO applied, VS taken. EVELYN PATE oriented to bed controls, call light, TV, heat, and A/C controls.
[2019-06-05] MEDS ORDERED: D5 LR IV SOLUTION 1,000 ML IV ONE (00:20)
--- NOTE | 2019-06-05 00:22 | NUR ---
notified of exam. Admission orders received.
[2019-06-05] MEDS ORDERED: MINERAL OIL CONCENTRATE 99.9% 15 ML UDC TOP PRN (00:30)
[2019-06-05] MEDS: D5 LR IV SOLUTION 1,000 ML IV SCH ×2 (00:45→09:39)
[2019-06-05] MEDS ORDERED: VANCOMYCIN 1000 MG/VIAL ONE (00:52)
[2019-06-05] MEDS ORDERED: WATER (STERILE) FOR INJECTION 20 ML ONE (00:53)
[2019-06-05] MEDS ORDERED: NS (IVPB) 250 ML ONE (00:58)
[2019-06-05 01:04] LABS: BASOPHILS % (AUTO) 0 % (0-10); EOSINOPHILS # (AUTO) 0.1 10^3/uL (0.0-0.3); EOSINOPHILS % (AUTO) 1 % (0-10); HEMATOCRIT 31 % (35-52); HEMOGLOBIN 10.1 G/DL (11.5-16.0); LYMPHOCYTES # (AUTO) 3.1 X 10^3 (1.0-4.0); LYMPHOCYTES % (AUTO) 22 % (12-44); MEAN CORPUSCULAR HEMOGLOBIN 21 PG (25-34); MEAN CORPUSCULAR HGB CONC 33 G/DL (32-36); MEAN CORPUSCULAR VOLUME 66 FL (80-99); MEAN PLATELET VOLUME 9.7 FL (7.4-10.4); MONOCYTES # (AUTO) 0.8 X 10^3 (0.0-1.0); MONOCYTES % (AUTO) 6 % (0-12); NEUTROPHILS # (AUTO) 10.4 X 10^3 (1.8-7.8); NEUTROPHILS % (AUTO) 72 % (42-75); PLATELET COUNT 397 10^3/uL (130-400); RED CELL DISTRIBUTION WIDTH 15.8 % (10.0-14.5); WHITE BLOOD COUNT 14.5 10^3/uL (4.3-11.0)
[2019-06-05] MEDS: VANCOMYCIN INJECTION 1,000 MG in NS (IVPB) 250 ML IV SCH ×2 (01:04→12:33)
[2019-06-05 01:28] LABS: BAND NEUTROPHILS 1 %; LYMPHOCYTES % (MANUAL) 23 %; MICROCYTOSIS MODERATE; MONOCYTES % (MANUAL) 3 %; NEUTROPHILS % (MANUAL) 73 %
[2019-06-05 01:35] LABS: BILIRUBIN,URINE NEGATIVE (NEGATIVE); CLARITY,URINE CLEAR; COLOR,URINE YELLOW; GLUCOSE, URINE (UA) NEGATIVE (NEGATIVE); KETONES,URINE NEGATIVE (NEGATIVE); LEUKOCYTE ESTERASE ,URINE 2+ (NEGATIVE); NITRITE,URINE NEGATIVE (NEGATIVE); PROTEIN,URINE NEGATIVE (NEGATIVE)
[2019-06-05] MEDS ORDERED: ONDANSETRON 4 MG/2 ML (SDV) Z0FRAN ONE (01:51)
[2019-06-05] MEDS ORDERED: SUFENTA 0.6MCG/ML BUPIVA 0.125 100 ML ONE (01:52)
--- NOTE | 2019-06-05 01:59 | NUR ---
called to unit. Update given. No new orders received.
[2019-06-05] MEDS: ONDANSETRON 4 MG/2 ML (SDV) Z0FRAN IV PRN ×2 (02:03→06:17)
[2019-06-05] MEDS ORDERED: fentaNYL INJECTION 100 MCG/2 ML AMP ONE (02:10)
[2019-06-05 02:29] LABS: BACTERIA,URINE TRACE /HPF
[2019-06-05] MEDS ORDERED: LACTATED RINGERS 1,000 ML IV ONE (02:48)
[2019-06-05] MEDS: EPIDURAL (SUFENTA 0.6MCG/ML BUPIVA 0.125%) 100 ML BAG EPI PRN ×2 (02:57→10:15)
[2019-06-05] MEDS ORDERED: NALOXONE 0.4 MG/ML 1 ML (NARCAN) VIAL IV PRN ×2 (03:00)
[2019-06-05] MEDS ORDERED: diphenhydrAMINE 50 MG/ML INJ (BENADRYL) IV PRN (03:00)
[2019-06-05] MEDS ORDERED: OXYTOCIN PRE-MIX DRIP 500 ML IV ONE (07:36)
[2019-06-05] MEDS ORDERED: LIDOCAINE/EPI 2% 1:200,00 (XYLOCAINE) 10 ML VIAL ONE (08:09)
[2019-06-05] MEDS: METOCLOPRAMIDE INJ 10 MG/2 ML (REGLAN) IV PRN ×2 (08:10→13:01)
[2019-06-05] MEDS ORDERED: OXYTOCIN PRE-MIX DRIP 500 ML IV SCH (11:02)
--- NOTE | 2019-06-05 12:32 | History & Physical-OB ---
OB - Chief Complaint & HPI Date/Time Date of Admission: Date of Admission: Jun 05, 2019 at 00:29 Time Seen by a Provider: 14:00 Chief Complaint/History OB-Reason for Admission/Chief: Labor Hx : 1 Hx Para: 0 Expected Date of Delivery: Jul 01, 2019 Gestational Age in Weeks: 36 Gestational Age in Days: 2 Other reason for admission: Patient was admitted for labor due to contraction, starting about 9:30. On admission she was 5 cm dilated so was admitted for labor. She has not yet had her GBS done. She has an amoxicillin allergy, so she was started on Vancomycin for GBS prophylaxis. Admission Nurse Assessment Rev: Yes History of Labs B+/- Rub I VDRL NR HIV - HbSAg - Hep C GBS unknown Allergies and Home Medications Allergies Coded Allergies: ibuprofen (Verified Allergy, Mild, HIVES, 09/13/18) amoxicillin (Verified Allergy, Unknown, 09/14/18) swollen lips, hives Home Medications Vit No.124/Iron/FA 1 Each Tablet, 1 EACH PO DAILY, (Reported) Patient Home Medication List Home Medication List Reviewed: Yes OB - History Hx of Present Care: Yes Ultrasounds: Normal mid trimester US Obstetrical Complications: None Medical Complications: None Information Induced Hypertension: No Maternal Gestational Diabetes: No Hemorrhage: No Obstetrical History Hx : 1 Hx Para: 0 Delivery History Adverse Rxn to Tranfusion: No Patient Past Medical History None Social History/Family History HIV/AIDS: No Recent Infectious Disease Expo: No Sexually Transmitted Disease: No Alcohol Use: Denies Use Recreational Drug Use: No 2nd Hand Smoke Exposure: No Immunizations Hepatitis A: No Hepatitis B: No Tetanus Booster (TDap): Less than 5yrs (04/11/2019) Rubella: immune RPR/VDRL: Negative GBS Status: Unknown HBsAG: Negative OB - Admission Exam Physical Exam Vitals: Vital Signs 06/05/19 06/05/19 06/05/19 08:15 10:15 11:00 Temp 36.6 Pulse 92 Resp 18 B/P (MAP) 117/57 (77) Pulse Ox 96 O2 Delivery Room Air Heart: Rhythm Normal Lungs: Clear Abdomen: Gravid Extremities: Normal Reflexes: Normal Cervical Dilatation: 5cm Effacement: 50% Station: -3 Membranes: Intact Heart Rate: 140's Accelerations: Accelerations Present Decelerations: No Decelerations Short Term Variability: Present Longterm Variability: Average (6-25) Contractions on Admission: < 5 Minutes Apart Labs Laboratory Tests Test 06/05/19 00:05 06/05/19 00:45 Range/Units Urine Color YELLOW Urine Clarity CLEAR Urine pH 6.0 5-9 Urine Specific [place] 1.010 L 1.016-1.022 Urine Protein NEGATIVE NEGATIVE Urine Glucose (UA) NEGATIVE NEGATIVE Urine Ketones NEGATIVE NEGATIVE Urine Nitrite NEGATIVE NEGATIVE Urine Bilirubin NEGATIVE NEGATIVE Urine Urobilinogen 0.2 < = 1.0 MG/DL Urine Leukocyte Esterase 2+ H NEGATIVE Urine RBC (Auto) NEGATIVE NEGATIVE Urine RBC NONE /HPF Urine WBC 5-10 H /HPF Urine Squamous Epithelial Cells 2-5 /HPF Urine Crystals NONE /LPF Urine Bacteria TRACE /HPF Urine Casts NONE /LPF Urine Mucus NEGATIVE /LPF Urine Culture Indicated YES White Blood Count 14.5 H 4.3-11.0 10^3/uL Red Blood Count 4.72 4.35-5.85 10^6/uL Hemoglobin 10.1 L 11.5-16.0 G/DL Hematocrit 31 L 35-52 % Mean Corpuscular Volume 66 L 80-99 FL Mean Corpuscular Hemoglobin 21 L 25-34 PG Mean Corpuscular Hemoglobin Concent 33 32-36 G/DL Red Cell Distribution Width 15.8 H 10.0-14.5 % Platelet Count 397 130-400 10^3/uL Mean Platelet Volume 9.7 7.4-10.4 FL Neutrophils (%) (Auto) 72 42-75 % Lymphocytes (%) (Auto) 22 12-44 % Monocytes (%) (Auto) 6 0-12 % Eosinophils (%) (Auto) 1 0-10 % Basophils (%) (Auto) 0 0-10 % Neutrophils # (Auto) 10.4 H 1.8-7.8 X 10^3 Lymphocytes # (Auto) 3.1 1.0-4.0 X 10^3 Monocytes # (Auto) 0.8 0.0-1.0 X 10^3 Eosinophils # (Auto) 0.1 0.0-0.3 10^3/uL Basophils # (Auto) 0.0 0.0-0.1 10^3/uL Neutrophils % (Manual) 73 % Lymphocytes % (Manual) 23 % Monocytes % (Manual) 3 % Band Neutrophils 1 % Microcytosis MODERATE OB - Assessment/Plan/Diagnosis Assessment Assessment: IUP - , labor Admission Dx 1. labor 2. 36 2/7 weeks Plan - Admit for labor, Anticipate Will start Vancomycin for GBS prophylaxis since GBS is unknown and she is Admission Status: Inpatient Order (span 2 midnights) Reason for Inpatient Admission: labor Plan Plan: Expectant Management GUTIERREZ PALMA DO Jun 05, 2019 12:32
[2019-06-05] MEDS ORDERED: LIDOCAINE 1% INJ 20 ML 20 ML VIAL ONE (14:50)
[2019-06-05] MEDS: OXYTOCIN PRE-MIX DRIP 500 ML IV SCH ×2 (15:42→18:23)
--- NOTE | 2019-06-05 15:43 | NUR ---
Discharge instructions reviewed with patient both written and verbally. Patient verbalizes understanding and questions answered. Addendum: 06/05/19 at 1750 by MINISTERIO MACKEY RN Wrong Patient
--- NOTE | 2019-06-05 15:44 | OB Labor & Delivery Record ---
Vag Delivery Note Vag Delivery Note Date of Delivery: 06/05/19 Preoperative Diagnosis: Jodie Maddox is a 21 /Para 1 / 0, Gestational Age 36 2/7 weeks, labor Postoperative Diagnosis: Same Surgeon: GUTIERREZ PALMA Anesthesia: epidural, pudendal Delivery Type: Findings: Viable male , apgars 4/7/9, weight 6#7ounces Lacerations: 1st degree, right ant labial superficial Intact placenta with 3 vessel cord. No nuchal cord, the was a bandelo/body cord or shoulder dystocia Estimated Blood Loss: 250 ml Complications: None Condition: Stable Description of Procedure: The patient is a 23 /Para 1 / 0,Gestational Age 36 2/7 weeks, labor. She was admitted and informed consent was obtained. Her labor course was remarkable for AROM and augmentation with pitocin. She progressed to complete dilatation and began to push. She was then set up for delivery. The 's head was delivered atraumatically in the OA position. The shoulders and remainder of the infant's body were then delivered without difficulty. Upon delivery, the head was held below the level of the perineum and the mouth and nares were bulb suctioned. The cord was doubly clamped and cut and the infant was handed off to the pediatric staff. An intact placenta with 3-vessel cord delivered via Angie and there was found to be minimal bleeding.~ Vigorous fundal massage was performed and the fundus was found to be firm. IV oxytocin was given. Examination of the vagina and perineum revealed a 1st degree laceration and right anterior labial laceration repaired in the usual fashion with 3-0 vicryl suture. Following the repair, sponge, instrument and needle counts were correct. Mom and baby were both in stable condition in the labor suite. Vitals - Labs Vital Signs - I&O Vital Signs Date Time Temp Pulse Resp B/P (MAP) Pulse Ox O2 Delivery O2 Flow Rate FiO2 06/05/19 13:00 36.7 105 18 128/74 (92) Room Air 06/05/19 12:45 100 18 142/73 (96) Room Air 06/05/19 12:30 101 18 144/93 (110) Room Air 06/05/19 12:15 104 18 108/52 (70) Room Air 06/05/19 12:00 105 18 110/53 (72) Room Air 06/05/19 11:45 36.6 89 18 110/57 (74) Room Air 06/05/19 11:30 90 18 121/60 (80) Room Air 06/05/19 11:15 93 18 116/59 (78) Room Air 06/05/19 11:00 92 18 117/57 (77) Room Air 06/05/19 10:45 88 18 125/79 (94) Room Air 06/05/19 10:30 85 18 127/65 (85) Room Air 06/05/19 10:15 36.6 96 18 115/63 (80) Room Air 06/05/19 10:00 95 18 122/70 (87) Room Air 06/05/19 09:45 106 18 117/62 (80) Room Air 06/05/19 09:30 36.5 75 18 102/55 (71) Room Air 06/05/19 09:15 80 18 100/55 (70) Room Air 06/05/19 09:00 81 18 98/53 (68) Room Air 06/05/19 08:45 82 18 100/58 (72) Room Air 06/05/19 08:29 36.6 116 18 103/68 (80) Room Air 06/05/19 08:15 120 18 104/63 (77) 96 Room Air 06/05/19 08:00 94 18 97 Room Air 06/05/19 07:45 102 18 111/62 (78) 95 Room Air 06/05/19 07:30 36.9 96 18 110/59 (76) 94 Room Air 06/05/19 07:15 101 18 111/63 (79) 97 Room Air 06/05/19 07:00 36.8 106 18 104/59 (74) 97 06/05/19 06:45 100 18 115/56 (75) 95 06/05/19 06:30 109 18 118/57 (77) 96 06/05/19 06:15 102 18 108/61 (77) 96 06/05/19 06:00 104 18 121/58 (79) 97 06/05/19 05:45 103 18 121/60 (80) 97 06/05/19 05:30 96 18 114/62 (79) 96 06/05/19 05:15 91 18 123/72 (89) 96 06/05/19 05:00 98 18 121/80 (94) 98 06/05/19 04:45 90 18 126/67 (86) 97 06/05/19 04:30 89 18 114/55 (74) 97 06/05/19 04:15 91 18 110/57 (74) 96 06/05/19 04:00 86 18 120/59 (79) 96 06/05/19 03:45 88 18 136/67 (90) 96 06/05/19 03:30 99 18 144/77 (99) 98 06/05/19 03:15 90 18 120/56 (77) 96 06/05/19 03:10 96 18 119/57 (77) 96 06/05/19 03:04 108 18 166/57 (93) 97 06/05/19 03:01 111 18 114/55 (74) 97 06/05/19 02:55 111 18 124/57 (79) 97 06/05/19 02:52 96 18 117/58 (77) 97 06/05/19 02:49 93 18 117/58 (77) 97 06/05/19 02:46 102 18 143/91 (108) 98 06/05/19 02:43 36.9 94 18 132/86 (101) 98 06/05/19 02:00 85 18 132/76 (94) 06/05/19 01:00 36.4 95 18 142/78 (99) 98 06/05/19 00:19 36.5 111 18 97 Room Air 06/05/19 00:13 36.4 95 18 98 Room Air I & O 06/05/19 07:00 Intake Total 1250 ml Balance 1250 ml Labs Laboratory Tests 06/05/19 00:05: Urine Color YELLOW, Urine Clarity CLEAR, Urine pH 6.0, Urine Specific [place] 1.010L, Urine Protein NEGATIVE, Urine Glucose (UA) NEGATIVE, Urine Ketones NEGATIVE, Urine Nitrite NEGATIVE, Urine Bilirubin NEGATIVE, Urine Urobilinogen 0.2, Urine Leukocyte Esterase 2+H, Urine RBC (Auto) NEGATIVE, Urine RBC NONE, Urine WBC 5-10H, Urine Squamous Epithelial Cells 2-5, Urine Crystals NONE, Urine Bacteria TRACE, Urine Casts NONE, Urine Mucus NEGATIVE, Urine Culture Indicated YES 06/05/19 00:45: White Blood Count 14.5H, Red Blood Count 4.72, Hemoglobin 10.1L, Hematocrit 31L, Mean Corpuscular Volume 66L, Mean Corpuscular Hemoglobin 21L, Mean Corpuscular Hemoglobin Concent 33, Red Cell Distribution Width 15.8H, Platelet Count 397, Mean Platelet Volume 9.7, Neutrophils (%) (Auto) 72, Lymphocytes (%) (Auto) 22, Monocytes (%) (Auto) 6, Eosinophils (%) (Auto) 1, Basophils (%) (Auto) 0, Neutrophils # (Auto) 10.4H, Lymphocytes # (Auto) 3.1, Monocytes # (Auto) 0.8, Eosinophils # (Auto) 0.1, Basophils # (Auto) 0.0, Neutrophils % (Manual) 73, Lymphocytes % (Manual) 23, Monocytes % (Manual) 3, Band Neutrophils 1, Microcytosis MODERATE GUTIERREZ PALMA DO Jun 05, 2019 15:44
[2019-06-05] MEDS ORDERED: TETANUS,DIPTH,PERTUSS P/F (BOOSTRIX) 0.5 ML VIAL IM ONE (15:45)
[2019-06-05] MEDS ORDERED: MEASLES,MUMPS,RUBELLA 1 EA INJ SQ ONE (15:45)
[2019-06-05] MEDS ORDERED: BENZOCAINE/MENTHOL (DERMOPLAST) 60 ML CAN TP PRN (15:45)
[2019-06-05] MEDS ORDERED: WITCH HAZEL(TUCKS) 40 EA JAR TOP PRN (15:45)
[2019-06-05] MEDS ORDERED: DIBUCAINE (NUPERCAINAL) 1% OINT 30 GM TOP PRN (15:45)
--- NOTE | 2019-06-05 17:18 | NUR ---
SVE 1 cm/Thick/Ballotable. Addendum: 06/05/19 at 1750 by MINISTERIO MACKEY RN Wrong Patient
--- NOTE | 2019-06-05 17:25 | NUR ---
Dr. Colin notified of patient's arrival, complaints, and exam. New orders received. Addendum: 06/05/19 at 1749 by MINISTERIO MACKEY RN Wrong Patient
[2019-06-05] MEDS ORDERED: ACETAMINOPHEN 500 MG TAB (TYLENOL) ONE (17:32)
[2019-06-05] MEDS: ACETAMINOPHEN 500 MG TAB (TYLENOL) PO SCH (17:37)
--- NOTE | 2019-06-05 17:45 | NUR ---
Patient discharged at this time and ambulated from the unit accompanied by family. No signs or symptoms of distress noted. Addendum: 06/05/19 at 1749 by MINISTERIO MACKEY RN Wrong Patient
[2019-06-05] MEDS ORDERED: IBUPROFEN 600 MG (MOTRIN) TAB PO SCH (18:00)
--- NOTE | 2019-06-05 18:05 | NUR ---
Patient transferred via wheelchair to room 310. Patient up to restroom. + void noted. Pericare reviewed. Clean pad and panties applied. Patient ambulated back to bed without difficulty. Patient oriented to room and bed controls.
--- NOTE | 2019-06-05 19:40 | NUR ---
INITIAL SHIFT ASSESSMENT DONE. VSS. PT DENIES ANY PAIN OR C/O'S AT THIS TIME. PT TRYING TO GET INFANT AWAKE ENOUGH TO BREASTFEED.
--- NOTE | 2019-06-05 19:55 | NUR ---
INFANT WELL. PT DENIES ANY NEEDS.
--- NOTE | 2019-06-05 21:00 | NUR ---
NEW PANTIES AND PADS GIVEN PER REQUEST.
[2019-06-05] MEDS ORDERED: CATHETER FLUSH 10 ML SYR IV SCH (22:00)
[2019-06-05] MEDS: DOCUSATE SODIUM 100 MG (COLACE) CAP PO SCH (22:00)
--- NOTE | 2019-06-05 23:45 | NUR ---
INFANT TO NSY AT THIS TIME FOR BATH. PT DENIES ANY NEEDS.
--- NOTE | 2019-06-06 00:30 | NUR ---
TYLENOL ADMINISTERED. PT C/O PERINEAL PAIN OF 5/10.
[2019-06-06] MEDS: ACETAMINOPHEN 500 MG TAB (TYLENOL) PO SCH ×4 (00:35→23:48)
[2019-06-06 02:00] VITALS: BP 123/75
--- NOTE | 2019-06-06 02:00 | NUR ---
PT HAS JUST FINISHED . PT DENIES ANY NEEDS OR C/O'S.
--- NOTE | 2019-06-06 05:40 | NUR ---
MOM AWAKE AND PREPARING TO BREASTFEED. REPORTS MILD PERINEAL DISCOMFORT, BUT PAIN MANAGEABLE. PT DENIES ANY NEEDS AT THIS TIME.
[2019-06-06 08:00] VITALS: BP 119/63
--- NOTE | 2019-06-06 08:10 | NUR ---
A.M. ASSESSMENT COMPLETED. VSS.
[2019-06-06] MEDS: FERROUS SULF 325 MG (IRON) TAB PO SCH (08:25)
[2019-06-06] MEDS: DOCUSATE SODIUM 100 MG (COLACE) CAP PO SCH ×2 (08:25→21:19)
[2019-06-06] MEDS: PRENATAL VITAMIN 1 EA TAB PO SCH (08:25)
--- NOTE | 2019-06-06 09:08 | Anesthesia-Regional Post-Op ---
Regional Patient Condition Mental Status: Alert, Oriented x3 Circulation: Same as Pre-Op Headache: Absent Sensation: Full Recovery Motor Block: Absent Post Op Complications Complications None Follow Up Care/Instructions Patient Instructions None needed. Anesthesia/Patient Condition Patient is doing well, no complaints, stable vital signs, no apparent adverse anesthesia problems. No complications reported per nursing. ANDREW RODRIGUEZ CRNA Jun 06, 2019 09:08
[2019-06-06 09:22] LABS: BASOPHILS % (AUTO) 0 % (0-10); EOSINOPHILS % (AUTO) 0 % (0-10); HEMATOCRIT 27 % (35-52); HEMOGLOBIN 9.1 G/DL (11.5-16.0); LYMPHOCYTES # (AUTO) 2.3 X 10^3 (1.0-4.0); LYMPHOCYTES % (AUTO) 13 % (12-44); MEAN CORPUSCULAR HEMOGLOBIN 22 PG (25-34); MEAN CORPUSCULAR HGB CONC 33 G/DL (32-36); MEAN CORPUSCULAR VOLUME 66 FL (80-99); MEAN PLATELET VOLUME 9.3 FL (7.4-10.4); MONOCYTES # (AUTO) 0.9 X 10^3 (0.0-1.0); MONOCYTES % (AUTO) 5 % (0-12); NEUTROPHILS # (AUTO) 14.1 X 10^3 (1.8-7.8); NEUTROPHILS % (AUTO) 82 % (42-75); PLATELET COUNT 344 10^3/uL (130-400); RED CELL DISTRIBUTION WIDTH 15.7 % (10.0-14.5); WHITE BLOOD COUNT 17.3 10^3/uL (4.3-11.0)
[2019-06-06 09:53] LABS: ANISOCYTOSIS SLIGHT; BAND NEUTROPHILS 0 %; BASOPHILS % (MANUAL) 0 %; EOSINOPHILS % (MANUAL) 0 %; LYMPHOCYTES % (MANUAL) 19 %; MICROCYTOSIS SLIGHT; MONOCYTES % (MANUAL) 2 %; NEUTROPHILS % (MANUAL) 79 %; TEAR DROP CELLS SLIGHT
--- NOTE | 2019-06-06 10:33 | Postpartum Progress Note ---
Note Note Day # 1 s/p Subjective: Patient is without complaints. Ambulating, voiding. Tolerating a regular diet without nausea or vomiting. Normal lochia. Pain is well controlled with oral pain medications. feeding. [] Objective: 06/06/19 06/06/19 02:00 08:00 Temp 36.2 36.7 Pulse 84 85 Resp 18 18 B/P (MAP) 123/75 (91) 119/63 (81) Pulse Ox 97 97 O2 Delivery Room Air Room Air 06/06/19 00:00 Intake Total 1975 ml Balance 1975 ml Laboratory Tests Test 06/06/19 09:15 Range/Units White Blood Count 17.3 H 4.3-11.0 10^3/uL Red Blood Count 4.12 L 4.35-5.85 10^6/uL Hemoglobin 9.1 L 11.5-16.0 G/DL Hematocrit 27 L 35-52 % Mean Corpuscular Volume 66 L 80-99 FL Mean Corpuscular Hemoglobin 22 L 25-34 PG Mean Corpuscular Hemoglobin Concent 33 32-36 G/DL Red Cell Distribution Width 15.7 H 10.0-14.5 % Platelet Count 344 130-400 10^3/uL Mean Platelet Volume 9.3 7.4-10.4 FL Neutrophils (%) (Auto) 82 H 42-75 % Lymphocytes (%) (Auto) 13 12-44 % Monocytes (%) (Auto) 5 0-12 % Eosinophils (%) (Auto) 0 0-10 % Basophils (%) (Auto) 0 0-10 % Neutrophils # (Auto) 14.1 H 1.8-7.8 X 10^3 Lymphocytes # (Auto) 2.3 1.0-4.0 X 10^3 Monocytes # (Auto) 0.9 0.0-1.0 X 10^3 Eosinophils # (Auto) 0.0 0.0-0.3 10^3/uL Basophils # (Auto) 0.0 0.0-0.1 10^3/uL Neutrophils % (Manual) 79 % Lymphocytes % (Manual) 19 % Monocytes % (Manual) 2 % Eosinophils % (Manual) 0 % Basophils % (Manual) 0 % Band Neutrophils 0 % Anisocytosis SLIGHT Microcytosis SLIGHT Tear Drop Cells SLIGHT Physical Exam: General - Alert and oriented, no apparent distress Abdomen - Soft, appropriately tender to palpation, non-distended, fundus firm at umbilicus Extremities - no edema, negative Adelina's bilaterally Assessment: 1 post- day # 1, status post spontaneous vaginal delivery. Recovering well, hemodynamically stable Plan: Routine care. Encourage breast feeding. Encourage ambulation. Ferrous sulfate supplementation. Plan for discharge tomorrow Vitals - Labs Vital Signs - I&O Vital Signs Date Time Temp Pulse Resp B/P (MAP) Pulse Ox O2 Delivery O2 Flow Rate FiO2 06/06/19 08:00 36.7 85 18 119/63 (81) 97 Room Air 06/06/19 02:00 36.2 84 18 123/75 (91) 97 Room Air 06/05/19 19:45 36.4 93 18 110/58 (75) 98 Room Air 06/05/19 17:46 103 18 113/54 (73) Room Air 06/05/19 17:31 101 18 115/55 (75) Room Air 06/05/19 17:16 112 18 96/53 (67) Room Air 06/05/19 17:01 90 18 122/64 (83) Room Air 06/05/19 16:46 36.7 96 18 106/53 (70) Room Air 06/05/19 16:31 36.8 93 18 132/61 (84) Room Air 06/05/19 16:16 99 18 112/55 (74) Room Air 06/05/19 16:01 96 18 117/53 (74) Room Air 06/05/19 15:46 110 18 122/75 (91) Room Air 06/05/19 15:31 36.8 110 18 121/64 (83) Room Air 06/05/19 15:16 36.7 98 18 110/55 (73) Room Air 06/05/19 15:10 Room Air 06/05/19 15:05 37.2 107 18 154/63 (93) Room Air 06/05/19 15:00 18 Room Air 06/05/19 14:45 100 18 131/72 (91) Room Air 06/05/19 14:30 103 18 132/74 (93) Room Air 06/05/19 14:15 83 18 131/69 (89) Room Air 06/05/19 14:00 36.8 85 18 127/68 (87) Room Air 06/05/19 13:45 92 18 112/58 (76) Room Air 06/05/19 13:30 84 18 109/60 (76) Room Air 06/05/19 13:15 93 18 106/61 (76) Room Air 06/05/19 13:00 36.7 105 18 128/74 (92) Room Air 06/05/19 12:45 100 18 142/73 (96) Room Air 06/05/19 12:30 101 18 144/93 (110) Room Air 06/05/19 12:15 104 18 108/52 (70) Room Air 06/05/19 12:00 105 18 110/53 (72) Room Air 06/05/19 11:45 36.6 89 18 110/57 (74) Room Air 06/05/19 11:30 90 18 121/60 (80) Room Air 06/05/19 11:15 93 18 116/59 (78) Room Air 06/05/19 11:00 92 18 117/57 (77) Room Air 06/05/19 10:45 88 18 125/79 (94) Room Air I & O 06/06/19 07:00 Intake Total 2975 ml Balance 2975 ml Labs Laboratory Tests 06/06/19 09:15: White Blood Count 17.3H, Red Blood Count 4.12L, Hemoglobin 9.1L, Hematocrit 27L, Mean Corpuscular Volume 66L, Mean Corpuscular Hemoglobin 22L, Mean Corpuscular Hemoglobin Concent 33, Red Cell Distribution Width 15.7H, Platelet Count 344, Mean Platelet Volume 9.3, Neutrophils (%) (Auto) 82H, Lymphocytes (%) (Auto) 13, Monocytes (%) (Auto) 5, Eosinophils (%) (Auto) 0, Basophils (%) (Auto) 0, Neutrophils # (Auto) 14.1H, Lymphocytes # (Auto) 2.3, Monocytes # (Auto) 0.9, Eosinophils # (Auto) 0.0, Basophils # (Auto) 0.0, Neutrophils % (Manual) 79, Lymphocytes % (Manual) 19, Monocytes % (Manual) 2, Eosinophils % (Manual) 0, Basophils % (Manual) 0, Band Neutrophils 0, Anisocytosis SLIGHT, Microcytosis SLIGHT, Tear Drop Cells SLIGHT Microbiology 06/05/19 Urine Culture - Final, Complete 3 or more isolates PALMA,GUTIERREZ C DO Jun 06, 2019 10:33
--- NOTE | 2019-06-06 11:00 | NUR ---
SHOWERED WITHOUT PROBLEMS. OFFERS NO COMPLAINTS AT THIS TIME. REMAINS IN ROOM.
[2019-06-06 12:00] VITALS: BP 128/72
--- NOTE | 2019-06-06 15:00 | NUR ---
CONTINUES TO DO WELL. CARING FOR INFANT IN ROOM. GOOD INTERACTION NOTED. HAS BEEN IN THIS SHIFT.
[2019-06-06 16:06] VITALS: BP 135/77
--- NOTE | 2019-06-06 18:30 | NUR ---
EATING STORK MEAL. PLANNING TO GO HOME TOMORROW.
[2019-06-06 21:19] VITALS: BP 119/77
[2019-06-07 02:55] VITALS: BP 126/75
[2019-06-07 08:11] VITALS: BP 136/82
[2019-06-07] MEDS: DOCUSATE SODIUM 100 MG (COLACE) CAP PO SCH (08:13)
[2019-06-07] MEDS: ACETAMINOPHEN 500 MG TAB (TYLENOL) PO SCH (08:13)
[2019-06-07] MEDS: FERROUS SULF 325 MG (IRON) TAB PO SCH (08:13)
[2019-06-07] MEDS: PRENATAL VITAMIN 1 EA TAB PO SCH (08:13)
--- NOTE | 2019-06-07 08:15 | NUR ---
PT SITTING UP IN BED, BREAKFAST AT THE BEDSIDE. VS OBTAINED. MEDS GIVEN PO; SEE EMAR FOR FURTHER. INITIAL SHIFT ASSESSMENT COMPLETED; SEE INTERVENTION FOR FURTHER. PLAN FOR DISCHARGE TODAY.
[2019-06-07] MEDS ORDERED: ACET-93 PO (08:58)
[2019-06-07] MEDS ORDERED: FERR325T18 PO (08:58)
[2019-06-07] MEDS ORDERED: DCS100C PO (08:58)
--- NOTE | 2019-06-07 09:01 | Discharge Inst-Women's Service ---
Discharge Inst-Women's Serv Depart Medication/Instructions New, Converted or Re-Newed RX: Transmitted to Pharmacy Problems Reviewed?: Yes Consults/Follow Up Additional Follow Up: Yes (1-2 weeks with Arabella and 6 weeks post ) Activity Activity: Activity as Tolerated Driving Instructions: You May Drive NO SMOKING: NO SMOKING Nothing Inside Vagina: No Douching, No [place], No Tampons Diet Discharge Diet: No Restrictions Symptoms to Report to : Bleeding Excessive, Pain Increased, Fever Over 101 D egrees F, Vaginal Bleeding Increase, Vaginal Discharge GUTIERREZ Mares DO Jun 07, 2019 09:01
--- NOTE | 2019-06-07 09:39 | NUR ---
DISCHARGE PAPERS PROVIDED AND REVIEWED WITH PT, UNDERSTANDING VERBALIZED. PAPER SIGNED. FOLLOW UP APPOINTMENT CARD PROVIDED, RXS TRANSMITTED TO PHARMACY PER
--- NOTE | 2019-06-07 10:45 | NUR ---
PT DISCHARGED FROM -310 TO PERSONAL AUTO VIA AMBULATORY IN STABLE CONDITION ACC BY S/O, AND Arthur ROGERS RN.
== END 2019-06-07 10:45 | disposition home or self-care (01) | DRG 807 ==
LOC: LDRP → WSo → LDRP 00:29 → WSo 00:29 → LDRP 18:05
PROVIDERS: ADMIT Obstetrics & Gynecology; ATTEND Obstetrics & Gynecology
PROC: 10E0XZZ Delivery of Products of Conception, External Approach (ICD-10-PCS; principal; 2019-06-05)
PROC: 0HQ9XZZ Repair Perineum Skin, External Approach (ICD-10-PCS; 2019-06-05)
PROC: 0UQMXZZ Repair Vulva, External Approach (ICD-10-PCS; 2019-06-05)
DX: O60.14X0 Preterm labor third trimester with preterm delivery third trimester, not applicable or unspecified (principal); O70.0 First degree perineal laceration during delivery; Z3A.36 36 weeks gestation of pregnancy; Z37.0 Single live birth; Z88.1 Allergy status to other antibiotic agents
CPT/HCPCS: 36415; 81000; 85007; 85027; 86850; 86900; 86901; 87088; 99212

== ENCOUNTER → 2020-02-02 | Outpatient (CLI) | payer MEDICAID ==
[~2020-02-02] MED LIST changes: +ACET-93 PO; +DCS100C PO; +FERR325T18 PO
--- NOTE | 2020-02-02 15:30 | Diagnostic Imaging Report ---
PROCEDURE: US non-OB pelvis comp/trans. TECHNIQUE: Multiple realtime grayscale images were obtained of the pelvis in various projections, endovaginally. Transabdominal imaging was also performed. INDICATION: Acute pelvic pain. COMPARISON: There is no prior study available for comparison. FINDINGS: The uterus is nongravid and not enlarged measuring 7.7 x 3.6 x 5.2 cm. The endometrial lining is not thickened, measuring 5-6 mm. There is no focal mass involving the uterus to suggest a fibroid. Both ovaries were identified. There is a 2.1 x 1.4 x 1.1 cm cyst associated with the right ovary. The cyst has a generally benign appearance. The left ovary is generally unremarkable. There is no solid pelvic mass or free fluid collection noted. IMPRESSION: There is a 2.1 x 1.4 x 1.1 cm benign-appearing cyst associated with the right ovary. There is no acute pelvic abnormality noted otherwise. Dictated by: Dictated on workstation # [id number]
== END ==
LOC: RAD 14:08
PROVIDERS: ATTEND Obstetrics & Gynecology
DX: N83.201 Unspecified ovarian cyst, right side (principal)
CPT/HCPCS: 76830; 76856

== ENCOUNTER 2020-12-25 10:27 | Emergency (ER) | payer BC, MEDICAID ==
[2020-12-25] MEDS ORDERED: fentaNYL INJ 100 MCG/2 ML AMP IVP STA (10:48)
[2020-12-25] MEDS ORDERED: ONDANSETRON 4 MG/2 ML (SDV) Z0FRAN IVP STA (10:48)
[2020-12-25] MEDS ORDERED: NS IV 1000 ML 1,000 ML IV STA (10:48)
[2020-12-25] MEDS ORDERED: KETOROLAC 30 MG/ML VIAL IVP STA (10:48)
--- NOTE | 2020-12-25 10:55 | ED General ---
General Chief Complaint: Back Problems Stated Complaint: RT FLANK PAIN; VOMITING Source of Information: Patient History of Present Illness Date Seen by Provider: Dec 25, 2020 Time Seen by Provider: 10:29 Initial Comments 25 yo female presenting with complaint of sudden onset right flank pain with hematuria and dysuria since this am. She has a history of kidney stones. She was seen at [facility] clinic this am and told she had a UTI and started on Pyridium and antibiotics. She continued to have pain and vomiting after getting home. She was told to come to the ED and be evaluated for kidney stone or other cause for her flank pain and vomiting. She denies any fever, chills, diarrhea, constipation, vaginal bleeding, abdominal trauma. She last had a kidney stone 3 to 4 years ago and had some similar symptoms at that time. She does states she is allergic to ibuprofen but that she can take Aleve. She does not know what they gave her when she was seen a few years ago for a kidney stone. It was able to pass on its own when she had the previous kidney stone. She rates her pain 10 out of 10 and states it is worse than childbirth. She denies any vaginal discharge. She states her last menstrual period was 2 to 2-1/2 weeks ago and normal for her. She does take oral control pills. Timing/Duration: 4-6 Hours Severity: Severe Associated Systoms: No Chest Pain, No Cough, No Diaphoresis, No Fever/Chills, No Headaches; Nausea/Vomiting; No Seizure, No Shortness of Air, No Syncope Allergies and Home Medications Allergies Coded Allergies: ibuprofen (Verified Allergy, Mild, HIVES, 09/13/18) amoxicillin (Verified Allergy, Unknown, 09/14/18) swollen lips, hives Patient Home Medication List Home Medication List Reviewed: Yes Acetaminophen (Acetaminophen) 500 Mg Tablet, 1,000 MG PO Q8HR Prescribed by: GUTIERREZ PALMA on 06/07/19857 Docusate Sodium (Dok) 100 Mg Capsule, 100 MG PO BID Prescribed by: GUTIERREZ PALMA on 06/07/19857 Ferrous Sulfate (Ferrous Sulfate) 325 Mg Tablet, 325 MG PO DAILY Prescribed by: GUTIERREZ PALMA on 06/07/19857 Hydrocodone/Acetaminophen (Hydrocodone-Acetamin 5-325 mg) 1 Each Tablet, 1 TAB PO Q4H PRN for PAIN-SEVERE (8-10) Prescribed by: BARRINGTON ERVIN on 12/25/20 1231 Ondansetron (Ondansetron Odt) 4 Mg Tab.rapdis, 4 MG PO Q6H PRN for NAUSEA/VOMITING Prescribed by: BARRINGTON ERVIN on 12/25/20 1230 Vit No.124/Iron/FA ( Vitamin Tablet) 1 Each Tablet, 1 EACH PO DAILY, (Reported) Entered as Reported by: CHUY GALVAN on 03/16/192053 Tamsulosin HCl (Flomax) 0.4 Mg Cap, 0.4 MG PO DAILY Prescribed by: BARRINGTON ERVIN on 12/25/20 1230 Review of Systems Review of Systems Constitutional: No chills, No fever EENTM: no symptoms reported Respiratory: no symptoms reported Cardiovascular: no symptoms reported Gastrointestinal: see HPI Genitourinary: see HPI Musculoskeletal: see HPI (Right flank pain that has moved around to her right side lower abdomen) Skin: No rash Psychiatric/Neurological: Anxiety Past Dppamjt-Uxtkdb-Xzczqf Hx Immunizations Up To Date Tetanus Booster (TDap): Less than 5yrs PED Vaccines UTD: No Seasonal Allergies Seasonal Allergies: No Past Medical History Surgeries: Yes Gallbladder Respiratory: No Cardiac: No Neurological: No Headaches /Migraines Female Reproductive Disorders: Menstrual Problems, Endometriosis, Ovarian Cyst Sexually Transmitted Disease: No HIV/AIDS: No Genitourinary: No Kidney Stones, UTI-Chronic Gastrointestinal: No Gastroesophageal Reflux, Chronic Diarrhea Musculoskeletal: No Endocrine: No HEENT: No Loss of Vision: Bilateral Hearing Impairment: Denies Cancer: No Psychosocial: Yes Anxiety, Depression Integumentary: No Blood Disorders: No Adverse Reaction/Blood Tranf: No Family Medical History Patient reports no known family medical history. Physical Exam Vital Signs Vital Signs - First Documented 12/25/20 10:35 Temp 36.1 Pulse 69 Resp 18 B/P (MAP) 163/86 (111) Pulse Ox 100 O2 Delivery Room Air Capillary Refill : Height, Weight, BMI Height: 5'5.00" Weight: 230lbs. 0.0oz. 104.691283in; 40.91 BMI Method: General Appearance: Moderate Distress HEENT: Pharynx Normal Neck: Full Range of Motion, Normal Inspection, Non Tender, Supple Respiratory: Chest Non Tender, Lungs Clear, Normal Breath Sounds Cardiovascular: Regular Rate, Rhythm, Normal Peripheral Pulses Gastrointestinal: No Pulsatile Mass, Soft, Abnormal Bowel Sounds (Hypoactive), Guarding (Right lower); No Mass, No Rebound; Tenderness (right lower abdomen) Rectal: Deferred Back: No CVA Tenderness, No Vertebral Tenderness Extremity: Normal Capillary Refill, Normal Inspection, No Pedal Edema Neurologic/Psychiatric: Alert, Oriented x3, fire technician II-XII Norm as Tested Skin: Normal Color, Warm/Dry; No Rash Progress/Results/Core Measures Suspected Sepsis SIRS Temperature: Pulse: Respiratory Rate: Laboratory Tests 12/25/20 10:46: White Blood Count 15.3H Blood Pressure / Mean: Laboratory Tests 12/25/20 10:46: Creatinine 1.03, Platelet Count 500H, Total Bilirubin 0.2 Results/Orders Lab Results Laboratory Tests Test 12/25/20 10:42 12/25/20 10:46 Range/Units Urine Color ORANGE H Urine Clarity TURBID Urine pH 6.5 5-9 Urine Specific [place] 1.025 H 1.016-1.022 Urine Protein 2+ H NEGATIVE Urine Glucose (UA) 1+ H NEGATIVE Urine Ketones 1+ H NEGATIVE Urine Nitrite POSITIVE H NEGATIVE Urine Bilirubin 2+ H NEGATIVE Urine Urobilinogen >=8.0 < = 1.0 MG/DL Urine Leukocyte Esterase 2+ H NEGATIVE Urine RBC (Auto) 2+ H NEGATIVE Urine RBC 5-10 H /HPF Urine WBC 5-10 H /HPF Urine Squamous Epithelial Cells 2-5 /HPF Urine Crystals NONE /LPF Urine Amorphous Sediment LARGE HARPREET URATES H /LPF Urine Bacteria FEW H /HPF Urine Casts NONE /LPF Urine Mucus NEGATIVE /LPF Urine Culture Indicated YES White Blood Count 15.3 H 4.3-11.0 10^3/uL Red Blood Count 5.50 H 3.80-5.11 10^6/uL Hemoglobin 11.7 11.5-16.0 g/dL Hematocrit 38 35-52 % Mean Corpuscular Volume 68 L 80-99 fL Mean Corpuscular Hemoglobin 21 L 25-34 pg Mean Corpuscular Hemoglobin Concent 31 L 32-36 g/dL Red Cell Distribution Width 15.1 H 10.0-14.5 % Platelet Count 500 H 130-400 10^3/uL Mean Platelet Volume 9.0 9.0-12.2 fL Immature Granulocyte % (Auto) 0 % Neutrophils (%) (Auto) 82 H 42-75 % Lymphocytes (%) (Auto) 13 12-44 % Monocytes (%) (Auto) 4 0-12 % Eosinophils (%) (Auto) 1 0-10 % Basophils (%) (Auto) 0 0-10 % Neutrophils # (Auto) 12.6 H 1.8-7.8 X 10^3 Lymphocytes # (Auto) 2.1 1.0-4.0 X 10^3 Monocytes # (Auto) 0.6 0.0-1.0 X 10^3 Eosinophils # (Auto) 0.1 0.0-0.3 10^3/uL Basophils # (Auto) 0.0 0.0-0.1 10^3/uL Immature Granulocyte # (Auto) 0.1 0.0-0.1 10^3/uL Neutrophils % (Manual) 75 % Lymphocytes % (Manual) 18 % Monocytes % (Manual) 3 % Eosinophils % (Manual) 0 % Basophils % (Manual) 0 % Band Neutrophils 4 % Sodium Level 137 135-145 MMOL/L Potassium Level 3.7 3.6-5.0 MMOL/L Chloride Level 104 98-107 MMOL/L Carbon Dioxide Level 20 L 21-32 MMOL/L Anion Gap 13 5-14 MMOL/L Blood Urea Nitrogen 11 7-18 MG/DL Creatinine 1.03 0.60-1.30 MG/DL Estimat Glomerular Filtration Rate 66 BUN/Creatinine Ratio 11 Glucose Level 107 H 70-105 MG/DL Calcium Level 9.1 8.5-10.1 MG/DL Corrected Calcium 8.9 8.5-10.1 MG/DL Total Bilirubin 0.2 0.1-1.0 MG/DL Aspartate Amino Transf (AST/SGOT) 15 5-34 U/L Alanine Aminotransferase (ALT/SGPT) 9 0-55 U/L Alkaline Phosphatase 84 40-136 U/L Total Protein 7.6 6.4-8.2 GM/DL Albumin 4.3 3.2-4.5 GM/DL Lipase 29 8-78 U/L My Orders Orders - BARRINGTON ERVIN MD Ua Culture If Indicated (12/25/20 10:33) Urine Bedside (12/25/20 10:33) Comprehensive Metabolic Panel (12/25/20 10:47) Lipase (12/25/20 10:47) Ed Iv/Invasive Line Start (12/25/20 10:47) Cbc With Automated Diff (12/25/20 10:47) Ct Abdomen/Pelvis Wo (12/25/20 10:47) Ns Iv 1000 Ml (Sodium Chloride 0.9%) (12/25/20 10:48) Ketorolac Injection (Toradol Injection) (12/25/20 10:48) Ondansetron Injection (Zofran Injectio (12/25/20 10:48) Fentanyl Inj (Sublimaze Injection) (12/25/20 10:48) Manual Differential (12/25/20 10:46) Urine Culture (12/25/20 10:42) Tamsulosin Capsule (Flomax Capsule) (12/25/20 12:16) Hydrocodone/Apap 5/325 Tablet (Lortab 5 (12/25/20 12:16) Strain Urine (12/25/20 12:16) Vital Signs/I&O 12/25/20 12/25/20 12/25/20 12/25/20 10:35 11:15 12:25 12:37 Temp 36.1 36.1 36.1 36.1 Pulse 69 69 Resp 18 18 B/P (MAP) 163/86 (111) 163/86 Pulse Ox 100 100 O2 Delivery Room Air Room Air Capillary Refill : Progress Note #1: Progress Note With her complaint of severe right flank pain and hematuria with a history of kidney stones will obtain basic labs, urine, CT scan without contrast to ev aluate for stones. Give IV fluids for hydration, Toradol for pain, fentanyl for pain, Zofran for nausea. Differential diagnosis includes kidney stone, pyelonephritis, diverticulitis, appendicitis, ovarian cyst, colitis, urinary tract infection Progress Note #2: Progress Note Lab shows elevated WBC count which may be partly due to stress and pain and partly due to Urine infection. UA positive for everything but pt is taking pyridium. Chemistry without acute significant abnormality. CT scan shows 4 mm kidney stone with moderate amount of obstruction and hydroureter on right side at the UVJ ready to go to the bladder. Some small stones in the kidneys. Appendix was ok. When reviewing results with the patient she was much more calm and states the pain was resolved with treatment. Counseled on follow-up and return precautions. Counseled on results of the testing showing the kidney stone. Advised to continue with antibiotics for now as well as taking the pain medicine, Flomax and Zofran if needed. Given information for Dr. Alvares with urology if needed for follow-up and not improving with symptoms. Counseled on using strainer to try and see when her kidney stone passes. Diagnostic Imaging Diagonstic Imaging: CT Plain Films/CT/US/NM/MRI: abdomen, pelvis Comments NAME: EVELYN PATE [facility] REC#: [id number] PT STATUS: REG ER : 1995 PHYSICIAN: BARRINGTON ERVIN MD ADMIT DATE: 12/25/20/ER FS Signed Date of Exam:12/25/20 CT ABDOMEN/PELVIS WO PROCEDURE: CT abdomen and pelvis without contrast. TECHNIQUE: Multiple contiguous axial images were obtained through the abdomen and pelvis without the use of intravenous contrast. Auto Exposure Controls were utilized during the CT exam to meet ALARA standards for radiation dose reduction. INDICATION: Right-sided flank pain. Nausea and vomiting. Hematuria. COMPARISON: None. FINDINGS: The heart is unremarkable. The lung bases are clear. Obstructing calculus is seen at the right UVJ measuring 0.4 cm with [id number] right-sided hydroureteronephrosis. No hydronephrosis is seen in the left kidney. Nonobstructing calculi are seen in the left kidney measuring up to 0.5 cm. The urinary bladder is nondistended. No bladder calculi are seen. The liver, spleen, pancreas, and adrenal glands have a normal appearance. The gallbladder is surgically absent. There is no pathologically enlarged mesenteric or retroperitoneal adenopathy. The bowel loops are nondilated. The appendix is visualized in the right lower quadrant and has a normal appearance. There is no free fluid or free air. No acute osseous abnormalities. There is no free air, loculated collection, or adenopathy in the pelvis. IMPRESSION: 1. Obstructing calculus at the right UVJ measuring 0.4 cm with [id number] right-sided hydroureteronephrosis. 2. Nonobstructing calculi in the left kidney measuring up to 0.5 cm. Dictated by: Dictated on workstation # [id number] Dict: 12/25/20 1145 Trans: 12/25/20 1152 [id number] Interpreted by: GABY AMARO DO Electronically signed by: GABY AMARO DO 12/25/20 1152 Reviewed: Reviewed by Me Departure Impression Primary Impression: Renal colic on right side Additional Impressions: Acute right flank pain Right ureteral calculus Disposition: 01 HOME, SELF-CARE Condition: Stable Departure-Patient Inst. Decision time for Depature: 12:28 Referrals: SELFANTHONY MD (PCP/Family) Primary Care Physician CARLITOS VITALE MD Patient Instructions: Kidney Stone, Adult ED, Kidney Stone Diet, How to Strain Your Urine Add. Discharge Instructions: Stay well hydrated and drink plenty of water and hydrating fluids. Avoid caffeinated and carbonated drinks as they can dehydrate you and contribute to more stones forming. Use the pain medicine to help control your pain and nausea medicine to keep stomach settled. Strain your urine to see when your stone passes. Check with Urologist for continued concerns or if pain not resolving and stone passing within next few days. Seek medical care for fever over 101 F, uncontrolled pain, uncontrolled vomiting. All discharge instructions reviewed with patient and/or family. Voiced understanding. Scripts Tamsulosin HCl (Flomax) 0.4 Mg Cap 0.4 MG PO DAILY for renal colic for 7 Days, #7 CAP 0 Refills Prov: BARRINGTON ERVIN MD 12/25/20 Hydrocodone/Acetaminophen (Hydrocodone-Acetamin 5-325 mg) 1 Each Tablet 1 TAB PO Q4H PRN for PAIN-SEVERE (8-10) for 5 Days, #30 TAB 0 Refills Prov: BARRINGTON ERVIN MD 12/25/20 Ondansetron (Ondansetron Odt) 4 Mg Tab.rapdis 4 MG PO Q6H PRN for NAUSEA/VOMITING for 4 Days, #16 TAB 0 Refills Prov: BARRINGTON ERVIN MD 12/25/20 BARRINGTON ERVIN MD Dec 25, 2020 10:55
[2020-12-25 11:01] LABS: WHITE BLOOD COUNT 15.3 10^3/uL (4.3-11.0)
[2020-12-25 11:02] LABS: BASOPHILS % (AUTO) 0 % (0-10); EOSINOPHILS # (AUTO) 0.1 10^3/uL (0.0-0.3); EOSINOPHILS % (AUTO) 1 % (0-10); HEMATOCRIT 38 % (35-52); HEMOGLOBIN 11.7 g/dL (11.5-16.0); LYMPHOCYTES # (AUTO) 2.1 X 10^3 (1.0-4.0); LYMPHOCYTES % (AUTO) 13 % (12-44); MEAN CORPUSCULAR HEMOGLOBIN 21 pg (25-34); MEAN CORPUSCULAR HGB CONC 31 g/dL (32-36); MEAN CORPUSCULAR VOLUME 68 fL (80-99); MONOCYTES # (AUTO) 0.6 X 10^3 (0.0-1.0); MONOCYTES % (AUTO) 4 % (0-12); NEUTROPHILS # (AUTO) 12.6 X 10^3 (1.8-7.8); NEUTROPHILS % (AUTO) 82 % (42-75); PLATELET COUNT 500 10^3/uL (130-400)
[2020-12-25 11:09] LABS: CLARITY,URINE TURBID; COLOR,URINE ORANGE
[2020-12-25 11:10] LABS: PH,URINE 6.5 (5-9); PROTEIN,URINE 2+ (NEGATIVE)
[2020-12-25 11:11] LABS: GLUCOSE, URINE (UA) 1+ (NEGATIVE); KETONES,URINE 1+ (NEGATIVE); NITRITE,URINE POSITIVE (NEGATIVE)
[2020-12-25 11:12] LABS: BILIRUBIN,URINE 2+ (NEGATIVE)
[2020-12-25 11:13] LABS: AMORPHOUS SEDIMENT,UR LARGE AMOR URATES /LPF; BACTERIA,URINE FEW /HPF; LEUKOCYTE ESTERASE ,URINE 2+ (NEGATIVE)
[2020-12-25 11:31] LABS: CREATININE SERUM 1.03 MG/DL (0.60-1.30); POTASSIUM 3.7 MMOL/L (3.6-5.0)
[2020-12-25 11:32] LABS: ALBUMIN 4.3 GM/DL (3.2-4.5); BILIRUBIN,TOTAL 0.2 MG/DL (0.1-1.0); CALCIUM 9.1 MG/DL (8.5-10.1); TOTAL PROTEIN 7.6 GM/DL (6.4-8.2)
[2020-12-25 11:42] LABS: BAND NEUTROPHILS 4 %; BASOPHILS % (MANUAL) 0 %; EOSINOPHILS % (MANUAL) 0 %; LYMPHOCYTES % (MANUAL) 18 %; MONOCYTES % (MANUAL) 3 %; NEUTROPHILS % (MANUAL) 75 %
--- NOTE | 2020-12-25 11:49 | Diagnostic Imaging Report ---
PROCEDURE: CT abdomen and pelvis without contrast. TECHNIQUE: Multiple contiguous axial images were obtained through the abdomen and pelvis without the use of intravenous contrast. Auto Exposure Controls were utilized during the CT exam to meet ALARA standards for radiation dose reduction. INDICATION: Right-sided flank pain. Nausea and vomiting. Hematuria. COMPARISON: None. FINDINGS: The heart is unremarkable. The lung bases are clear. Obstructing calculus is seen at the right UVJ measuring 0.4 cm with [id number] right-sided hydroureteronephrosis. No hydronephrosis is seen in the left kidney. Nonobstructing calculi are seen in the left kidney measuring up to 0.5 cm. The urinary bladder is nondistended. No bladder calculi are seen. The liver, spleen, pancreas, and adrenal glands have a normal appearance. The gallbladder is surgically absent. There is no pathologically enlarged mesenteric or retroperitoneal adenopathy. The bowel loops are nondilated. The appendix is visualized in the right lower quadrant and has a normal appearance. There is no free fluid or free air. No acute osseous abnormalities. There is no free air, loculated collection, or adenopathy in the pelvis. IMPRESSION: 1. Obstructing calculus at the right UVJ measuring 0.4 cm with [id number]-ds-oklnxyxw right-sided hydroureteronephrosis. 2. Nonobstructing calculi in the left kidney measuring up to 0.5 cm. Dictated by: Dictated on workstation # [id number]
[2020-12-25] MEDS ORDERED: TAMSULOSIN 0.4 MG (FLOMAX) CAP PO STA (12:16)
[2020-12-25] MEDS ORDERED: HYDROcodone/APAP 5 MG/325 MG (LORTAB) TAB PO STA (12:16)
[2020-12-25] MEDS ORDERED: ONDA4TAB11 PO (12:30)
[2020-12-25] MEDS ORDERED: ACHD5005 PO (12:30)
[2020-12-25] MEDS ORDERED: TMSL.4C PO (12:30)
[2020-12-25 12:37] VITALS: BP 163/86
== END 2020-12-25 12:33 | disposition home or self-care (01) ==
LOC: EDUNIT# 10:27 → ER FS 10:28
DX: N23 Unspecified renal colic (principal); N13.2 Hydronephrosis with renal and ureteral calculous obstruction; N39.0 Urinary tract infection, site not specified
CPT/HCPCS: 36415; 74176; 80053; 81000; 83690; 84703; 85007; 85027; 87088

== ENCOUNTER 2021-04-15 14:49 | Emergency (ER) | payer BC, MEDICAID ==
[~2021-04-15] VITALS: Ht 165.1 cm; Wt 87.5 kg
[~2021-04-15 14:49] MED LIST changes: +ACHD5005 PO; -DCS100C PO; +DOCU-239 PO; +ONDA4TAB11 PO; +TMSL.4C PO
--- NOTE | 2021-04-15 14:59 | ED GI ---
General Stated Complaint: COVID+; VOMITING History of Present Illness Date Seen by Provider: Apr 15, 2021 Time Seen by Provider: 14:54 Initial Comments 25-year-old female presents with vomiting. She reports that for the last 2 hours she has been vomiting cannot keep weaning down. She tested positive for Covid about a week ago. She has had mild cough throughout it and some nausea. However the vomiting started today. She denies any abdominal pain. She denies fever or chills. Allergies and Home Medications Allergies Coded Allergies: ibuprofen (Verified Allergy, Mild, HIVES, 09/13/18) amoxicillin (Verified Allergy, Unknown, 09/14/18) swollen lips, hives Patient Home Medication List Home Medication List Reviewed: Yes Acetaminophen (Acetaminophen) 500 Mg Tablet, 1,000 MG PO Q8HR Prescribed by: GUTIERREZ PALMA on 06/07/19 08 Docusate Sodium (Dok) 100 Mg Capsule, 100 MG PO BID Prescribed by: GUTIERREZ PALMA on 06/07/19 08 Ferrous Sulfate (Ferrous Sulfate) 325 Mg Tablet, 325 MG PO DAILY Prescribed by: GUTIERREZ PALMA on 06/07/19 08 Hydrocodone/Acetaminophen (Hydrocodone-Acetamin 5-325 mg) 1 Each Tablet, 1 TAB PO Q4H PRN for PAIN-SEVERE (8-10) Prescribed by: BARRINGTON ERVIN on 12/25/20 1231 Ondansetron (Ondansetron Odt) 4 Mg Tab.rapdis, 4 MG PO Q6H PRN for NAUSEA/VOMITING Prescribed by: BARRINGTON ERVIN on 12/25/20 1230 Vit No.124/Iron/FA ( Vitamin Tablet) 1 Each Tablet, 1 EACH PO DAILY, (Reported) Entered as Reported by: CHUY GALVAN on 03/16/192053 Tamsulosin HCl (Flomax) 0.4 Mg Cap, 0.4 MG PO DAILY Prescribed by: BARRINGTON ERVIN on 12/25/20 1230 Review of Systems Review of Systems Constitutional: No chills, No fever Respiratory: Cough; Denies Shortness of Air Cardiovascular: Denies Chest Pain, Denies Lightheadedness, Denies Palpitations Gastrointestinal: Denies Abdominal Pain; Nausea, Vomiting Genitourinary: No Symptoms Reported Musculoskeletal: no symptoms reported Skin: no symptoms reported Psychiatric/Neurological: No Symptoms Reported Endocrine: No Symptoms Reported Hematologic/Lymphatic: No Symptoms Reported Past Efghvqv-Sfmgsv-Fkvvxj Hx Immunizations Up To Date Tetanus Booster (TDap): Less than 5yrs PED Vaccines UTD: No Seasonal Allergies Seasonal Allergies: No Past Medical History Surgeries: Yes Gallbladder Respiratory: No Cardiac: No Neurological: No Headaches /Migraines Female Reproductive Disorders: Menstrual Problems, Endometriosis, Ovarian Cyst Sexually Transmitted Disease: No HIV/AIDS: No Genitourinary: No Kidney Stones, UTI-Chronic Gastrointestinal: No Gastroesophageal Reflux, Chronic Diarrhea Musculoskeletal: No Endocrine: No HEENT: No Loss of Vision: Bilateral Hearing Impairment: Denies Cancer: No Psychosocial: Yes Anxiety, Depression Integumentary: No Blood Disorders: No Adverse Reaction/Blood Tranf: No Family Medical History Patient reports no known family medical history. Physical Exam Vital Signs Vital Signs - First Documented 04/15/21 14:50 Temp 36.6 Pulse 90 Resp 20 B/P (MAP) 123/60 (81) O2 Delivery Room Air Capillary Refill : Height/Weight/BMI Height: 5'5.00" Weight: 230lbs. 0.0oz. 104.336968rv; 40.91 BMI Method: General Appearance: WD/WN, no apparent distress Respiratory: lungs clear, normal breath sounds Cardiovascular: normal peripheral pulses, regular rate, rhythm Gastrointestinal: non tender, soft Extremities: normal range of motion, non-tender, normal inspection Neurologic/Psychiatric: alert, normal mood/affect, oriented x 3 Skin: normal color, warm/dry Progress/Results/Core Measures Results/Orders Lab Results Laboratory Tests Test 04/15/21 15:15 04/15/21 15:20 Range/Units Urine Color YELLOW Urine Clarity SLT CLOUDY Urine pH 7.0 5-9 Urine Specific [place] 1.015 L 1.016-1.022 Urine Protein NEGATIVE NEGATIVE Urine Glucose (UA) NEGATIVE NEGATIVE Urine Ketones TRACE H NEGATIVE Urine Nitrite NEGATIVE NEGATIVE Urine Bilirubin NEGATIVE NEGATIVE Urine Urobilinogen 0.2 < = 1.0 MG/DL Urine Leukocyte Esterase 2+ H NEGATIVE Urine RBC (Auto) NEGATIVE NEGATIVE Urine RBC NONE /HPF Urine WBC 2-5 /HPF Urine Squamous Epithelial Cells 2-5 /HPF Urine Crystals NONE /LPF Urine Bacteria MODERATE H /HPF Urine Casts NONE /LPF Urine Mucus SMALL H /LPF Urine Culture Indicated YES Urine Test NEGATIVE NEGATIVE White Blood Count 8.6 4.3-11.0 10^3/uL Red Blood Count 5.64 H 3.80-5.11 10^6/uL Hemoglobin 12.1 11.5-16.0 g/dL Hematocrit 37 35-52 % Mean Corpuscular Volume 65 L 80-99 fL Mean Corpuscular Hemoglobin 21 L 25-34 pg Mean Corpuscular Hemoglobin Concent 33 32-36 g/dL Red Cell Distribution Width 15.7 H 10.0-14.5 % Platelet Count 340 130-400 10^3/uL Mean Platelet Volume 9.6 9.0-12.2 fL Neutrophils (%) (Auto) 71 42-75 % Lymphocytes (%) (Auto) 23 12-44 % Monocytes (%) (Auto) 6 0-12 % Eosinophils (%) (Auto) 0 0-10 % Basophils (%) (Auto) 0 0-10 % Neutrophils # (Auto) 6.1 1.8-7.8 X 10^3 Lymphocytes # (Auto) 2.0 1.0-4.0 X 10^3 Monocytes # (Auto) 0.5 0.0-1.0 X 10^3 Eosinophils # (Auto) 0.0 0.0-0.3 10^3/uL Basophils # (Auto) 0.0 0.0-0.1 10^3/uL Sodium Level 138 135-145 MMOL/L Potassium Level 3.9 3.6-5.0 MMOL/L Chloride Level 104 98-107 MMOL/L Carbon Dioxide Level 20 L 21-32 MMOL/L Anion Gap 14 5-14 MMOL/L Blood Urea Nitrogen 12 7-18 MG/DL Creatinine 0.81 0.60-1.30 MG/DL Estimat Glomerular Filtration Rate 88 BUN/Creatinine Ratio 15 Glucose Level 94 70-105 MG/DL Calcium Level 8.7 8.5-10.1 MG/DL Corrected Calcium 8.5-10.1 MG/DL Total Bilirubin 0.2 0.1-1.0 MG/DL Aspartate Amino Transf (AST/SGOT) 10 5-34 U/L Alanine Aminotransferase (ALT/SGPT) 8 0-55 U/L Alkaline Phosphatase 81 40-136 U/L Total Protein 7.4 6.4-8.2 GM/DL Albumin 4.6 H 3.2-4.5 GM/DL Lipase 43 8-78 U/L My Orders Orders - HELMS,EBONI L DO Cbc With Automated Diff (04/15/21 15:05) Comprehensive Metabolic Panel (04/15/21 15:05) Hcg,Qualitative Urine (04/15/21 15:05) Lipase (04/15/21 15:05) Ua Culture If Indicated (04/15/21 15:05) Ondansetron Injection (Zofran Injectio (04/15/21 15:15) Ns Iv 1000 Ml (Sodium Chloride 0.9%) (04/15/21 15:05) Famotidine Injection (Pepcid Injection) (04/15/21 15:05) Urine Culture (04/15/21 15:15) Ceftriaxone 1 Gram Iv (04/15/21 16:02) Medications Given in ED Current Medications Medications Dose Ordered Sig/Christofer Route Start Time Stop Time Status Last Admin Dose Admin Ondansetron HCl 4 mg ONCE ONCE IVP 04/15/21 15:15 04/15/21 15:16 DC 04/15/21 15:21 4 MG Vital Signs/I&O 04/15/21 14:50 Temp 36.6 Pulse 90 Resp 20 B/P (MAP) 123/60 (81) O2 Delivery Room Air Progress Progress Note : Progress Note Patient with no vomiting episodes in the ER. Her symptoms improved with some IV fluids and Zofran. I will prescribe her some Zofran ODT. She also has a urinary tract infection which she received a gram of Rocephin in the ER and will give her Keflex x5 days that she can start tomorrow. Patient stable and discharged Departure Impression Primary Impression: COVID-19 Additional Impressions: Nausea & vomiting Qualified Codes: R11.2 - Nausea with vomiting, unspecified Urinary tract infection Qualified Codes: N30.00 - Acute cystitis without hematuria Disposition: HOME, SELF-CARE Condition: Stable Departure-Patient Inst. Referrals: SELF,ANTHONY MENDOZA (PCP/Family) Primary Care Physician Patient Instructions: COVID-19 ED, Urinary Tract Infection, Adult (DC), Nausea and Vomiting, Adult Add. Discharge Instructions: Clear liquid diet, advance as tolerated Scripts Ondansetron (Ondansetron Odt) 4 Mg Tab.rapdis 4 MG PO Q6H PRN for NAUSEA/VOMITING, #20 TAB 0 Refills Prov: EBONI HELMS DO 04/15/21 Cephalexin (Cephalexin) 500 Mg Tablet 500 MG PO QID, #10 TAB 0 Refills Prov: EBONI HELMS DO 04/15/21 EBONI HELMS DO Apr 15, 2021 14:59
[2021-04-15] MEDS ORDERED: FAMOTIDINE 20MG/2ML IV (PEPCID) IV STA (15:05)
[2021-04-15] MEDS ORDERED: NS IV 1000 ML 1,000 ML IV STA (15:05)
[2021-04-15] MEDS ORDERED: ONDANSETRON 4 MG/2 ML (SDV) Z0FRAN IVP ONE (15:15)
[2021-04-15 15:35] LABS: BACTERIA,URINE MODERATE /HPF; BILIRUBIN,URINE NEGATIVE (NEGATIVE); CLARITY,URINE SLT CLOUDY; COLOR,URINE YELLOW; GLUCOSE, URINE (UA) NEGATIVE (NEGATIVE); KETONES,URINE TRACE (NEGATIVE); LEUKOCYTE ESTERASE ,URINE 2+ (NEGATIVE); NITRITE,URINE NEGATIVE (NEGATIVE); PROTEIN,URINE NEGATIVE (NEGATIVE)
[2021-04-15 15:41] LABS: HEMOGLOBIN 12.1 g/dL (11.5-16.0); MEAN CORPUSCULAR HEMOGLOBIN 21 pg (25-34); WHITE BLOOD COUNT 8.6 10^3/uL (4.3-11.0)
[2021-04-15 15:42] LABS: HEMATOCRIT 37 % (35-52); MEAN CORPUSCULAR HGB CONC 33 g/dL (32-36); MEAN CORPUSCULAR VOLUME 65 fL (80-99)
[2021-04-15 15:46] LABS: BASOPHILS % (AUTO) 0 % (0-10); EOSINOPHILS % (AUTO) 0 % (0-10); LYMPHOCYTES % (AUTO) 23 % (12-44); MEAN PLATELET VOLUME 9.6 fL (9.0-12.2); MONOCYTES % (AUTO) 6 % (0-12); NEUTROPHILS % (AUTO) 71 % (42-75); PLATELET COUNT 340 10^3/uL (130-400)
[2021-04-15 15:47] LABS: MONOCYTES # (AUTO) 0.5 X 10^3 (0.0-1.0); NEUTROPHILS # (AUTO) 6.1 X 10^3 (1.8-7.8)
[2021-04-15 15:51] LABS: ALANINE AMINOTRANSFERASE 8 U/L (0-55); ALKALINE PHOSPHATASE 81 U/L (40-136); BILIRUBIN,TOTAL 0.2 MG/DL (0.1-1.0); BUN/CREATININE RATIO 15; CALCIUM 8.7 MG/DL (8.5-10.1); CARBON DIOXIDE 20 MMOL/L (21-32); CHLORIDE 104 MMOL/L (98-107); CREATININE SERUM 0.81 MG/DL (0.60-1.30); GFR ESTIMATED 88; GLUCOSE 94 MG/DL (70-105); POTASSIUM 3.9 MMOL/L (3.6-5.0); SODIUM 138 MMOL/L (135-145); TOTAL PROTEIN 7.4 GM/DL (6.4-8.2)
[2021-04-15 15:52] LABS: ALBUMIN 4.6 GM/DL (3.2-4.5); LIPASE 43 U/L (8-78)
[2021-04-15] MEDS ORDERED: cefTRIAXone 1 GM PRE-MIX 50 ML IV STA (16:02)
[2021-04-15] MEDS ORDERED: ONDA4TAB11 PO (16:06)
[2021-04-15] MEDS ORDERED: CEPH500T PO (16:06)
[2021-04-15 16:27] VITALS: BP 124/67
== END 2021-04-15 16:27 | disposition home or self-care (01) ==
LOC: EDUNIT# 14:49 → ER FS 14:51
DX: U07.1 COVID-19 (principal); N30.00 Acute cystitis without hematuria; Z73.0 Burn-out; Z32.02 Encounter for pregnancy test, result negative
CPT/HCPCS: 36415; 80053; 81000; 83690; 84703; 85025; 87088

== ENCOUNTER 2021-06-01 10:30 | Emergency (ER) | payer BC, MEDICAID ==
[~2021-06-01] VITALS: Ht 165 cm; Wt 90.0 kg
[~2021-06-01 10:30] MED LIST changes: +CEPH500T PO
[2021-06-01] MEDS ORDERED: METOCLOPRAMIDE INJ 10 MG/2 ML (REGLAN) IVP STA (10:48)
[2021-06-01] MEDS ORDERED: diphenhydrAMINE 50 MG/ML INJ (BENADRYL) IVP STA (10:48)
[2021-06-01] MEDS ORDERED: NS IV 1000 ML 1,000 ML IV STA (10:48)
[2021-06-01] MEDS ORDERED: PANTOPRAZOLE 40 MG (PROTONIX) VIAL IV STA (10:48)
[2021-06-01 10:55] VITALS: BP 138/81
[2021-06-01 10:55] LABS: BASOPHILS # (AUTO) 0.1 10^3/uL (0.0-0.1); BASOPHILS % (AUTO) 0 % (0-10); EOSINOPHILS # (AUTO) 0.1 10^3/uL (0.0-0.3); EOSINOPHILS % (AUTO) 1 % (0-10); HEMATOCRIT 40 % (35-52); HEMOGLOBIN 12.4 g/dL (11.5-16.0); LYMPHOCYTES % (AUTO) 6 % (12-44); MEAN CORPUSCULAR HEMOGLOBIN 21 pg (25-34); MEAN CORPUSCULAR HGB CONC 31 g/dL (32-36); MEAN CORPUSCULAR VOLUME 67 fL (80-99); MEAN PLATELET VOLUME 9.2 fL (9.0-12.2); MONOCYTES # (AUTO) 0.7 10^3/uL (0.0-1.0); MONOCYTES % (AUTO) 4 % (0-12); NEUTROPHILS # (AUTO) 14.9 10^3/uL (1.8-7.8); NEUTROPHILS % (AUTO) 88 % (42-75); PLATELET COUNT 479 10^3/uL (130-400); WHITE BLOOD COUNT 16.8 10^3/uL (4.3-11.0)
--- NOTE | 2021-06-01 10:59 | ED GI ---
General Stated Complaint: VOMITING Source of Information: Patient History of Present Illness Date Seen by Provider: Jun 01, 2021 Time Seen by Provider: 10:34 Initial Comments 25-year-old female presenting with complaints of epigastric pain and vomiting for almost 3 months. She states that they have done blood work and x-rays several times but she continues to have symptoms. She is on acid gerontology aide as well as Carafate. She continues to have vomiting despite Zofran. Today her symptoms were worse for her even after taking the Zofran she was immediately vomiting. She denies having fever or chills. She does have constipation with hard infrequent stools. She has had prior surgery on her belly for endometriosis and gallbladder. Timing/Duration: Other (Almost 3 months) Severity/Quality: Sharp Location: Epigastric Radiation: Epigastric Modifying Factors: Worsens With Eating Associated Symptoms: No Back Pain, No Chest Pain, No Diaphoresis, No Fever/Chills, No Fatigue, No Headache; Heartburn, Nausea/Vomiting; No Rash, No Shortness of Air, No Swelling/Mass in Abdomen, No Syncope, No Weakness Allergies and Home Medications Allergies Coded Allergies: ibuprofen (Verified Allergy, Mild, HIVES, 09/13/18) amoxicillin (Verified Allergy, Unknown, 09/14/18) swollen lips, hives Patient Home Medication List Home Medication List Reviewed: Yes Acetaminophen (Acetaminophen) 500 Mg Tablet, 1,000 MG PO Q8HR Prescribed by: GUTIERREZ PALMA on 06/07/19 0858 Cephalexin (Cephalexin) 500 Mg Tablet, 500 MG PO QID Prescribed by: EBONI HELMS on 04/15/21 1606 Docusate Sodium (Dok) 100 Mg Capsule, 100 MG PO BID Prescribed by: GUTIERREZ PALMA on 06/07/19 0858 Ferrous Sulfate (Ferrous Sulfate) 325 Mg Tablet, 325 MG PO DAILY Prescribed by: GUTIERREZ PALMA on 06/07/19 0858 Hydrocodone/Acetaminophen (Hydrocodone-Acetamin 5-325 mg) 1 Each Tablet, 1 TAB PO Q4H PRN for PAIN-SEVERE (8-10) Prescribed by: BARRINGTON ERVIN on 12/25/20 1231 Metoclopramide HCl (Metoclopramide HCl Odt) 10 Mg Tab.rapdis, 10 MG PO Q6H PRN for NAUSEA/VOMITING Prescribed by: BARRINGTON ERVIN on 06/01/21 1241 Ondansetron (Ondansetron Odt) 4 Mg Tab.rapdis, 4 MG PO Q6H PRN for NAUSEA/VOMITING Prescribed by: BARRINGTON ERVIN on 12/25/20 1230 Ondansetron (Ondansetron Odt) 4 Mg Tab.rapdis, 4 MG PO Q6H PRN for NAUSEA/VOMITING Prescribed by: EBONI HELMS on 04/15/21 1606 Vit No.124/Iron/FA ( Vitamin Tablet) 1 Each Tablet, 1 EACH PO DAILY, (Reported) Entered as Reported by: CHUY GALVAN on 03/16/192053 Tamsulosin HCl (Flomax) 0.4 Mg Cap, 0.4 MG PO DAILY Prescribed by: BARRINGTON ERVIN on 12/25/20 1230 Review of Systems Review of Systems Constitutional: No chills, No fever EENTM: No Symptoms Reported Respiratory: No Symptoms Reported Cardiovascular: No Symptoms Reported Gastrointestinal: See HPI Genitourinary: No Symptoms Reported Musculoskeletal: no symptoms reported Skin: no symptoms reported Psychiatric/Neurological: Anxiety Endocrine: No Symptoms Reported Past Svfryfw-Mcdotn-Ewgzgi Hx Immunizations Up To Date Tetanus Booster (TDap): Less than 5yrs PED Vaccines UTD: No Seasonal Allergies Seasonal Allergies: No Past Medical History Surgeries: Yes Gallbladder Respiratory: No Cardiac: No Neurological: No Headaches /Migraines Female Reproductive Disorders: Menstrual Problems, Endometriosis, Ovarian Cyst Sexually Transmitted Disease: No HIV/AIDS: No Genitourinary: No Kidney Stones, UTI-Chronic Gastrointestinal: No Gastroesophageal Reflux, Chronic Diarrhea Musculoskeletal: No Endocrine: No HEENT: No Loss of Vision: Bilateral Hearing Impairment: Denies Cancer: No Psychosocial: Yes Anxiety, Depression Integumentary: No Blood Disorders: No Adverse Reaction/Blood Tranf: No Family Medical History Patient reports no known family medical history. Physical Exam Vital Signs Vital Signs - First Documented 06/01/21 10:55 Temp 36.6 Pulse 92 Resp 18 B/P (MAP) 138/81 (100) Pulse Ox 97 O2 Delivery Room Air Capillary Refill : Height/Weight/BMI Height: 5'5.00" Weight: 230lbs. 0.0oz. 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, alert, oriented x 3 Skin: normal color, warm/dry Progress/Results/Core Measures Results/Orders Lab Results Laboratory Tests Test 06/01/21 10:45 06/01/21 11:49 Range/Units White Blood Count 16.8 H 4.3-11.0 10^3/uL Red Blood Count 5.97 H 3.80-5.11 10^6/uL Hemoglobin 12.4 11.5-16.0 g/dL Hematocrit 40 35-52 % Mean Corpuscular Volume 67 L 80-99 fL Mean Corpuscular Hemoglobin 21 L 25-34 pg Mean Corpuscular Hemoglobin Concent 31 L 32-36 g/dL Red Cell Distribution Width 15.2 H 10.0-14.5 % Platelet Count 479 H 130-400 10^3/uL Mean Platelet Volume 9.2 9.0-12.2 fL Immature Granulocyte % (Auto) 0 % Neutrophils (%) (Auto) 88 H 42-75 % Lymphocytes (%) (Auto) 6 L 12-44 % Monocytes (%) (Auto) 4 0-12 % Eosinophils (%) (Auto) 1 0-10 % Basophils (%) (Auto) 0 0-10 % Neutrophils # (Auto) 14.9 H 1.8-7.8 10^3/uL Lymphocytes # (Auto) 1.0 1.0-4.0 10^3/uL Monocytes # (Auto) 0.7 0.0-1.0 10^3/uL Eosinophils # (Auto) 0.1 0.0-0.3 10^3/uL Basophils # (Auto) 0.1 0.0-0.1 10^3/uL Immature Granulocyte # (Auto) 0.1 0.0-0.1 10^3/uL Neutrophils % (Manual) 90 % Lymphocytes % (Manual) 6 % Monocytes % (Manual) 4 % Sodium Level 142 135-145 MMOL/L Potassium Level 4.2 3.6-5.0 MMOL/L Chloride Level 110 H 98-107 MMOL/L Carbon Dioxide Level 20 L 21-32 MMOL/L Anion Gap 12 5-14 MMOL/L Blood Urea Nitrogen 12 7-18 MG/DL Creatinine 0.66 0.60-1.30 MG/DL Estimat Glomerular Filtration Rate 126 BUN/Creatinine Ratio 18 Glucose Level 104 70-105 MG/DL Calcium Level 8.9 8.5-10.1 MG/DL Corrected Calcium 8.6 8.5-10.1 MG/DL Total Bilirubin 0.2 0.1-1.0 MG/DL Aspartate Amino Transf (AST/SGOT) 11 5-34 U/L Alanine Aminotransferase (ALT/SGPT) 9 0-55 U/L Alkaline Phosphatase 63 40-136 U/L Total Protein 7.5 6.4-8.2 GM/DL Albumin 4.4 3.2-4.5 GM/DL Lipase 48 8-78 U/L Serum Test, Qualitative NEGATIVE NEGATIVE Urine Color YELLOW Urine Clarity CLEAR Urine pH 5.5 5-9 Urine Specific Roy 1.010 L 1.016-1.022 Urine Protein NEGATIVE NEGATIVE Urine Glucose (UA) NEGATIVE NEGATIVE Urine Ketones NEGATIVE NEGATIVE Urine Nitrite NEGATIVE NEGATIVE Urine Bilirubin NEGATIVE NEGATIVE Urine Urobilinogen 0.2 < = 1.0 MG/DL Urine Leukocyte Esterase NEGATIVE NEGATIVE Urine RBC (Auto) TRACE-I H NEGATIVE Urine RBC 2-5 H /HPF Urine WBC 0-2 /HPF Urine Squamous Epithelial Cells 10-25 H /HPF Urine Crystals NONE /LPF Urine Bacteria TRACE /HPF Urine Casts NONE /LPF Urine Mucus NEGATIVE /LPF Urine Culture Indicated NO Urine Opiates Screen NEGATIVE NEGATIVE Urine Oxycodone Screen NEGATIVE NEGATIVE Urine Methadone Screen NEGATIVE NEGATIVE Urine Propoxyphene Screen NEGATIVE NEGATIVE Urine Barbiturates Screen NEGATIVE NEGATIVE Ur Tricyclic Antidepressants Screen NEGATIVE NEGATIVE Urine Phencyclidine Screen NEGATIVE NEGATIVE Urine Amphetamines Screen NEGATIVE NEGATIVE Urine Methamphetamines Screen NEGATIVE NEGATIVE Urine Benzodiazepines Screen NEGATIVE NEGATIVE Urine Cocaine Screen NEGATIVE NEGATIVE Urine Cannabinoids Screen POSITIVE H NEGATIVE My Orders Orders - BARRINGTON ERVIN MD Comprehensive Metabolic Panel (06/01/21 10:47) Lipase (06/01/21 10:47) Ua Culture If Indicated (2/26/22 10:47) Hcg,Qualitative Serum (06/01/21 10:47) Ed Iv/Invasive Line Start (06/01/21 10:47) Cbc With Automated Diff (06/01/21 10:47) Ct Abdomen/Pelvis W (06/01/21 10:47) Ns Iv 1000 Ml (Sodium Chloride 0.9%) (06/01/21 10:48) Pantoprazole Injection (Protonix Injecti (06/01/21 10:48) Metoclopramide Injection (Reglan Injecti (06/01/21 10:48) Diphenhydramine Injection (Benadryl Inje (06/01/21 10:48) Drug Screen Stat (Urine) (06/01/21 10:50) Manual Differential (06/01/21 10:45) Iohexol Injection (Omnipaque 350 Mg/Ml 1 (06/01/21 11:15) Received Contrast (Hold Metformin- Contr (06/01/21 11:15) Ns (Ivpb) (Sodium Chloride 0.9% Ivpb Bag (06/01/21 11:15) Medications Given in ED Current Medications Medications Dose Ordered Sig/Christofer Route Start Time Stop Time Status Last Admin Dose Admin Iohexol 100 ml ONCE ONCE IV 06/01/21 11:15 06/01/21 11:16 DC 06/01/21 11:20 100 ML Sodium Chloride 100 ml ONCE ONCE IV 06/01/21 11:15 06/01/21 11:16 DC 06/01/21 11:20 100 ML Vital Signs/I&O 06/01/21 10:55 Temp 36.6 Pulse 92 Resp 18 B/P (MAP) 138/81 (100) Pulse Ox 97 O2 Delivery Room Air Progress Progress Note #1: Progress Note Check labs and urine. CT scan of the abdomen pelvis to help evaluate for possible small bowel obstruction. Give IV fluids for hydration. Try a dose of Reglan with Benadryl to see if it might help with her nausea and vomiting. Also dose of Protonix for possible gastritis or peptic ulcer disease. Progress Note #2: Progress Note Labs shows an elevated white blood cell count which may be secondary to stress. Her chemistry panel appears stable without acute significant abnormality to account for her symptoms. Her urinalysis was clear of infection that had a specific gravity of 1.010. Her urine drug screen was positive for marijuana. The CT scan showed constipation and some enteritis versus mild ileus. There was no definite sign of a transition point or bowel obstruction. Will try treating patient for the constipation and try different antinausea medicine similar to the Reglan to help with motility Progress Note #3: Progress Note Patient reports she is doing better with the medications. She still has some mild nausea but certainly improved from when she first arrived in the ED. She is tolerating ice chips. Will send prescription for Reglan to continue and encouraged her to check back through the clinic as well as possibly checking with the surgeon about endoscopy Diagnostic Imaging Diagonstic Imaging: CT Plain Films/CT/US/NM/MRI: abdomen, pelvis Comments NAME: EVELYN PATE [facility] REC#: [id number] PT STATUS: REG ER : 1995 PHYSICIAN: BARRINGTON ERVIN MD ADMIT DATE: 06/01/21/ER FS Draft Date of Exam:06/01/21 CT ABDOMEN/PELVIS W PROCEDURE: CT abdomen and pelvis with contrast. TECHNIQUE: Multiple contiguous axial images were obtained through the abdomen and pelvis after administration of intravenous contrast. Auto Exposure Controls were utilized during the CT exam to meet ALARA standards for radiation dose reduction. All CT scans use one or more of the following dose optimizing techniques: automated exposure control, MA and/or KvP adjustment based on patient size and exam type or iterative reconstruction. INDICATION: Abdominal pain and vomiting COMPARISON: 12/25/2020 FINDINGS: The lung bases are clear. The heart is normal in size. The liver demonstrates no focal lesions. Cholecystectomy clips are noted. The spleen appears normal. The pancreas appears normal. The adrenal glands are normal. The kidneys demonstrate no enhancing masses. There are nonobstructing calculi in the kidneys bilaterally. There is no hydronephrosis. There are multiple fluid-filled loops of small bowel in the abdomen. These are at the upper limit of normal in diameter, particularly in the left upper abdomen. This may be due to an enteritis or ileus. No definite transition point is appreciated. There is marked stool throughout the colon. Trace free fluid is seen in the pelvis. No free air is seen. The appendix is normal. A tampon is noted. The urinary bladder is nondistended. No acute osseous abnormality is identified. There is transitional anatomy at the lumbosacral junction. IMPRESSION: 1. Prominent fluid-filled loops of small bowel, likely due to ileus. No definite transition point is seen. 2. Marked stool throughout the colon, please correlate with any history of constipation. 3. Trace free fluid in the pelvis, likely physiologic. 4. Nonobstructing calculi in the kidneys. Dictated on workstation # [id number] Dict: 06/01/21 1127 Trans: 06/01/21 1131 CV [id number] Interpreted by: NGOC ISABEL MD Electronically signed by: Reviewed: Reviewed by Me Departure Impression Primary Impression: Constipation Qualified Codes: K59.00 - Constipation, unspecified Additional Impressions: Chronic nausea Nausea and vomiting in adult patient Epigastric abdominal pain Disposition: HOME, SELF-CARE Condition: Stable Departure-Patient Inst. Decision time for Depature: 12:36 Referrals: JUSTIN SWANSON RICKY D DO SELF, MAXWELL MD (PCP/Family) Primary Care Physician Patient Instructions: Nausea and Vomiting, Adult ED, Gastritis ED, Constipation, Adult ED Add. Discharge Instructions: Use the metoclopramide or Reglan as an alternative nausea medication to help with keeping your stomach settled. Make sure that you are drinking plenty of fluids and staying well-hydrated. Take MiraLAX at least daily to help with constipation. Consider checking with the surgeon about possible endoscopy or scopes to look at the lining of your stomach and colon for other possible reasons for your pain and chronic nausea and vomiting. Scripts Metoclopramide HCl (Metoclopramide HCl Odt) 10 Mg Tab.rapdis 10 MG PO Q6H PRN for NAUSEA/VOMITING for 5 Days, #20 TAB 0 Refills Prov: BARRINGTON ERVIN MD 06/01/21 BARRINGTON ERVIN MD Jun 01, 2021 10:59
[2021-06-01 11:14] LABS: LYMPHOCYTES % (MANUAL) 6 %; MONOCYTES % (MANUAL) 4 %; NEUTROPHILS % (MANUAL) 90 %
[2021-06-01] MEDS ORDERED: IOHEXOL 350 MG/ML 100 ML (OMNIPAQUE 350) VIAL IV ONE (11:15)
[2021-06-01] MEDS ORDERED: HOLD METFORMIN - RECEIVED CONTRAST 20 ML VIAL IV SCH (11:15)
[2021-06-01] MEDS ORDERED: NS 100 ML (IVPB) BAG IV ONE (11:15)
[2021-06-01 11:20] LABS: ALBUMIN 4.4 GM/DL (3.2-4.5); BILIRUBIN,TOTAL 0.2 MG/DL (0.1-1.0); CALCIUM 8.9 MG/DL (8.5-10.1); CREATININE SERUM 0.66 MG/DL (0.60-1.30); POTASSIUM 4.2 MMOL/L (3.6-5.0); TOTAL PROTEIN 7.5 GM/DL (6.4-8.2)
--- NOTE | 2021-06-01 11:31 | Diagnostic Imaging Report ---
PROCEDURE: CT abdomen and pelvis with contrast. TECHNIQUE: Multiple contiguous axial images were obtained through the abdomen and pelvis after administration of intravenous contrast. Auto Exposure Controls were utilized during the CT exam to meet ALARA standards for radiation dose reduction. All CT scans use one or more of the following dose optimizing techniques: automated exposure control, MA and/or KvP adjustment based on patient size and exam type or iterative reconstruction. INDICATION: Abdominal pain and vomiting COMPARISON: 12/25/2020 FINDINGS: The lung bases are clear. The heart is normal in size. The liver demonstrates no focal lesions. Cholecystectomy clips are noted. The spleen appears normal. The pancreas appears normal. The adrenal glands are normal. The kidneys demonstrate no enhancing masses. There are nonobstructing calculi in the kidneys bilaterally. There is no hydronephrosis. There are multiple fluid-filled loops of small bowel in the abdomen. These are at the upper limit of normal in diameter, particularly in the left upper abdomen. This may be due to an enteritis or ileus. No definite transition point is appreciated. There is marked stool throughout the colon. Trace free fluid is seen in the pelvis. No free air is seen. The appendix is normal. A tampon is noted. The urinary bladder is nondistended. No acute osseous abnormality is identified. There is transitional anatomy at the lumbosacral junction. IMPRESSION: 1. Prominent fluid-filled loops of small bowel, likely due to ileus. No definite transition point is seen. 2. Marked stool throughout the colon, please correlate with any history of constipation. 3. Trace free fluid in the pelvis, likely physiologic. 4. Nonobstructing calculi in the kidneys. Dictated by: Dictated on workstation # [id number]
[2021-06-01 11:55] LABS: BILIRUBIN,URINE NEGATIVE (NEGATIVE); CLARITY,URINE CLEAR; COLOR,URINE YELLOW; GLUCOSE, URINE (UA) NEGATIVE (NEGATIVE); KETONES,URINE NEGATIVE (NEGATIVE); LEUKOCYTE ESTERASE ,URINE NEGATIVE (NEGATIVE); NITRITE,URINE NEGATIVE (NEGATIVE); PH,URINE 5.5 (5-9); PROTEIN,URINE NEGATIVE (NEGATIVE)
[2021-06-01 11:58] LABS: BACTERIA,URINE TRACE /HPF; WBC,URINE 0-2 /HPF
[2021-06-01 12:05] LABS: AMPHETAMINE SCREEN, URINE NEGATIVE (NEGATIVE); BARBITURATE SCREEN URINE NEGATIVE (NEGATIVE); BENZODIAZEPINES SCREEN URINE NEGATIVE (NEGATIVE); CANNABINOID SCREEN, URINE POSITIVE (NEGATIVE); COCAINE SCREEN URINE NEGATIVE (NEGATIVE); METHADONE STAT NEGATIVE (NEGATIVE); METHAMPHETAMINE SCREEN URINE S NEGATIVE (NEGATIVE); OPIATE SCREEN URINE NEGATIVE (NEGATIVE); OXYCODONE STAT NEGATIVE (NEGATIVE); PROPOXYPHENE STAT NEGATIVE (NEGATIVE); TRICYCLIC ANTIDEPRESSANTS SCRE NEGATIVE (NEGATIVE)
[2021-06-01] MEDS ORDERED: METO-527 PO (12:41)
== END 2021-06-01 11:45 | disposition home or self-care (01) ==
LOC: EDUNIT# 10:30 → ER FS 10:31
DX: K59.00 Constipation, unspecified (principal); R11.2 Nausea with vomiting, unspecified; D72.829 Elevated white blood cell count, unspecified; Z32.02 Encounter for pregnancy test, result negative
CPT/HCPCS: 36415; 74177; 80053; 80306; 81000; 83690; 84703; 85007; 85027; 96374; 96375; Q9967

== ENCOUNTER → 2021-12-16 | Outpatient (CLI) | payer BC, MEDICAID ==
[~2021-12-16] MED LIST changes: -ASPI-789 PO; +ASPI1TAB23 PO; +METO-527 PO
--- NOTE | 2021-12-16 17:17 | Diagnostic Imaging Report ---
INDICATION: Left knee pain AP, oblique, and lateral views of the left knee are obtained. No fracture or acute bone abnormality is seen. Joint spaces are unremarkable. There is a questionable joint effusion in the suprapatellar recess IMPRESSION: No acute fracture or dislocation. Questionable joint effusion in the suprapatellar recess. Dictated by: Dictated on workstation # [id number]
== END ==
LOC: RAD FS 10:01
PROVIDERS: ATTEND Nurse Practitioner
DX: M25.562 Pain in left knee (principal)
CPT/HCPCS: 73562

== ENCOUNTER 2022-01-27 10:00 | Emergency (ER) | payer MEDICAID ==
[~2022-01-27] VITALS: Ht 165 cm; Wt 83.0 kg
[2022-01-27] MEDS ORDERED: TAMSULOSIN 0.4 MG (FLOMAX) CAP PO STA (10:13)
[2022-01-27] MEDS ORDERED: morphine INJ 10 MG/ML 1ML (SYR OR VIAL) IVP STA (10:13)
[2022-01-27] MEDS ORDERED: ONDANSETRON 4 MG/2 ML (SDV) Z0FRAN IVP ONE (10:15)
[2022-01-27 10:20] LABS: BASOPHILS % (AUTO) 0 % (0-10); EOSINOPHILS # (AUTO) 0.1 10^3/uL (0.0-0.3); EOSINOPHILS % (AUTO) 1 % (0-10); HEMATOCRIT 37 % (35-52); HEMOGLOBIN 11.8 g/dL (11.5-16.0); LYMPHOCYTES # (AUTO) 2.6 10^3/uL (1.0-4.0); LYMPHOCYTES % (AUTO) 27 % (12-44); MEAN CORPUSCULAR HEMOGLOBIN 21 pg (25-34); MEAN CORPUSCULAR HGB CONC 32 g/dL (32-36); MEAN CORPUSCULAR VOLUME 68 fL (80-99); MEAN PLATELET VOLUME 8.8 fL (9.0-12.2); MONOCYTES # (AUTO) 0.4 10^3/uL (0.0-1.0); MONOCYTES % (AUTO) 5 % (0-12); NEUTROPHILS # (AUTO) 6.3 10^3/uL (1.8-7.8); NEUTROPHILS % (AUTO) 67 % (42-75); PLATELET COUNT 446 10^3/uL (130-400); WHITE BLOOD COUNT 9.5 10^3/uL (4.3-11.0)
[2022-01-27 10:22] LABS: BILIRUBIN,URINE NEGATIVE (NEGATIVE); CLARITY,URINE TURBID; COLOR,URINE RED; GLUCOSE, URINE (UA) NEGATIVE (NEGATIVE); KETONES,URINE NEGATIVE (NEGATIVE); LEUKOCYTE ESTERASE ,URINE 1+ (NEGATIVE); NITRITE,URINE POSITIVE (NEGATIVE); PROTEIN,URINE 2+ (NEGATIVE)
[2022-01-27 10:32] LABS: BACTERIA,URINE FEW /HPF; RBC,URINE >100 /HPF; SQUAMOUS EPITHELIAL CELL,UR 0-2 /HPF; WBC,URINE 0-2 /HPF
--- NOTE | 2022-01-27 10:32 | ED GI ---
General Chief Complaint: Abdominal/GI Problems Stated Complaint: HEMATURIA; SUPRAPUBIC PAIN; NAUSEA Source of Information: Patient Exam Limitations: No Limitations History of Present Illness Date Seen by Provider: Jan 27, 2022 Time Seen by Provider: 10:03 Initial Comments 26-year-old female with past medical history of kidney stones coming in due to left flank pain radiating to her left groin. Started at 3 AM this morning, intermittent, mild to moderate. She says it feels similar to prior kidney stones. Denies any nausea, vomiting, fever, dysuria, diarrhea, chest pain, shortness of breath, rash, vaginal discharge, or any other concerns. LMP was last week. Presented to urgent care and they referred her here. She says she does have a mild amount of hematuria which is new for her. Took an Excedrin this morning which did help somewhat with the pain. Is otherwise denying any other acute complaints. Denies ever having a stent or any type of urologic procedure Allergies and Home Medications Allergies Coded Allergies: ibuprofen (Verified Allergy, Mild, HIVES, 09/13/18) amoxicillin (Verified Allergy, Unknown, 09/14/18) swollen lips, hives Patient Home Medication List Home Medication List Reviewed: Yes Acetaminophen (Acetaminophen) 500 Mg Tablet, 1,000 MG PO Q8HR Prescribed by: GUTIERREZ PALMA on 06/07/19 0858 Acetaminophen (Tylenol Extra Strength) 500 Mg Tablet, 1,000 MG PO Q6H Prescribed by: GUZMAN BARNES on 01/27/22 1112 Cefdinir (Cefdinir) 300 Mg Capsule, 300 MG PO BID Prescribed by: GUZMAN BARNES on 01/27/22 1112 Cephalexin (Cephalexin) 500 Mg Tablet, 500 MG PO QID Prescribed by: EBONI HELMS on 04/15/21 1606 Docusate Sodium (Dok) 100 Mg Capsule, 100 MG PO BID Prescribed by: GUTIERREZ PALMA on 06/07/19 08 Ferrous Sulfate (Ferrous Sulfate) 325 Mg Tablet, 325 MG PO DAILY Prescribed by: GUTIERREZ PALMA on 06/07/19 0858 Hydrocodone/Acetaminophen (Hydrocodone-Acetamin 5-325 mg) 1 Each Tablet, 1 TAB PO Q4H PRN for PAIN-SEVERE (8-10) Prescribed by: BARRINGTON ERVIN on 12/25/20 1231 Metoclopramide HCl (Metoclopramide HCl Odt) 10 Mg Tab.rapdis, 10 MG PO Q6H PRN for NAUSEA/VOMITING Prescribed by: BARRINGTON ERVIN on 06/01/21 1241 Ondansetron (Ondansetron Odt) 4 Mg Tab.rapdis, 4 MG PO Q6H PRN for NAUSEA/VOMITING Prescribed by: BARRINGTON ERVIN on 12/25/20 1230 Ondansetron (Ondansetron Odt) 4 Mg Tab.rapdis, 4 MG PO Q6H PRN for NAUSEA/VOMITING Prescribed by: EBONI HELMS on 04/15/21 1606 Ondansetron (Ondansetron Odt) 4 Mg Tab.rapdis, 4 MG SL Q6H PRN for NAUSEA/VOMITING Prescribed by: GUZMAN BARNES on 01/27/22 1112 Oxycodone HCl (Oxycodone HCl) 5 Mg Tablet, 5 MG PO Q6H PRN for PAIN-SEVERE (8- 10) Prescribed by: GUZMAN BARNES on 01/27/22 1112 Vit No.124/Iron/FA ( Vitamin Tablet) 1 Each Tablet, 1 EACH PO DAILY, (Reported) Entered as Reported by: CHUY GALVAN on 03/16/192053 Tamsulosin HCl (Flomax) 0.4 Mg Cap, 0.4 MG PO DAILY Prescribed by: BARRINGTON ERVIN on 12/25/20 1230 Tamsulosin HCl (Flomax) 0.4 Mg Cap, 0.4 MG PO DAILY Prescribed by: GUZMAN BARNES on 01/27/22 1112 Review of Systems Review of Systems Constitutional: No fever EENTM: No Symptoms Reported Respiratory: No Symptoms Reported Cardiovascular: No Symptoms Reported Gastrointestinal: See HPI Genitourinary: See HPI Musculoskeletal: no symptoms reported Skin: no symptoms reported Psychiatric/Neurological: No Symptoms Reported Endocrine: No Symptoms Reported Hematologic/Lymphatic: No Symptoms Reported All Other Systems Reviewed Negative Unless Noted: Yes Past Msxager-Ehksor-Aregdy Hx Patient Social History Tobacco Use?: No Substance use?: No Alcohol Use?: No Immunizations Up To Date Tetanus Booster (TDap): Less than 5yrs PED Vaccines UTD: No Seasonal Allergies Seasonal Allergies: No Past Medical History Surgeries: Yes Gallbladder Respiratory: No Cardiac: No Neurological: No Headaches /Migraines Female Reproductive Disorders: Menstrual Problems, Endometriosis, Ovarian Cyst Sexually Transmitted Disease: No HIV/AIDS: No Genitourinary: No Kidney Stones, UTI-Chronic Gastrointestinal: No Gastroesophageal Reflux, Chronic Diarrhea Musculoskeletal: No Endocrine: No HEENT: No Loss of Vision: Bilateral Hearing Impairment: Denies Cancer: No Psychosocial: Yes Anxiety, Depression Integumentary: No Blood Disorders: No Adverse Reaction/Blood Tranf: No Family Medical History Patient reports no known family medical history. Physical Exam Vital Signs Capillary Refill : Height/Weight/BMI Height: 5'5.00" Weight: 230lbs. 0.0oz. [id number]; 33.00 BMI Method: General Appearance: WD/WN, no apparent distress HEENT: PERRL/EOMI, normal ENT inspection, pharynx normal Neck: non-tender, full range of motion, supple, normal inspection Respiratory: chest non-tender, lungs clear, normal breath sounds, no respiratory distress, no accessory muscle use Cardiovascular: regular rate, rhythm, no edema, no murmur Gastrointestinal: normal bowel sounds, non tender, soft; No distended, No guarding, No rebound Extremities: normal range of motion, non-tender, normal inspection, no pedal edema, no calf tenderness, normal capillary refill Back: normal inspection, no vertebral tenderness, CVA tenderness (L) Neurologic/Psychiatric: no motor/sensory deficits, alert, normal mood/affect Skin: normal color, warm/dry Lymphatic: no adenopathy Progress/Results/Core Measures Results/Orders Lab Results Laboratory Tests Test 01/27/22 10:07 01/27/22 10:15 Range/Units Urine Color RED H Urine Clarity TURBID Urine pH 5.0 5-9 Urine Specific What [place]er 1.020 1.016-1.022 Urine Protein 2+ H NEGATIVE Urine Glucose (UA) NEGATIVE NEGATIVE Urine Ketones NEGATIVE NEGATIVE Urine Nitrite POSITIVE H NEGATIVE Urine Bilirubin NEGATIVE NEGATIVE Urine Urobilinogen 0.2 < = 1.0 MG/DL Urine Leukocyte Esterase 1+ H NEGATIVE Urine RBC (Auto) 3+ H NEGATIVE Urine RBC >100 H /HPF Urine WBC 0-2 /HPF Urine Squamous Epithelial Cells 0-2 /HPF Urine Crystals NONE /LPF Urine Bacteria FEW H /HPF Urine Casts NONE /LPF Urine Mucus NEGATIVE /LPF Urine Culture Indicated YES White Blood Count 9.5 4.3-11.0 10^3/uL Red Blood Count 5.53 H 3.80-5.11 10^6/uL Hemoglobin 11.8 11.5-16.0 g/dL Hematocrit 37 35-52 % Mean Corpuscular Volume 68 L 80-99 fL Mean Corpuscular Hemoglobin 21 L 25-34 pg Mean Corpuscular Hemoglobin Concent 32 32-36 g/dL Red Cell Distribution Width 15.3 H 10.0-14.5 % Platelet Count 446 H 130-400 10^3/uL Mean Platelet Volume 8.8 L 9.0-12.2 fL Immature Granulocyte % (Auto) 0 % Neutrophils (%) (Auto) 67 42-75 % Lymphocytes (%) (Auto) 27 12-44 % Monocytes (%) (Auto) 5 0-12 % Eosinophils (%) (Auto) 1 0-10 % Basophils (%) (Auto) 0 0-10 % Neutrophils # (Auto) 6.3 1.8-7.8 10^3/uL Lymphocytes # (Auto) 2.6 1.0-4.0 10^3/uL Monocytes # (Auto) 0.4 0.0-1.0 10^3/uL Eosinophils # (Auto) 0.1 0.0-0.3 10^3/uL Basophils # (Auto) 0.0 0.0-0.1 10^3/uL Immature Granulocyte # (Auto) 0.0 0.0-0.1 10^3/uL Sodium Level 138 135-145 MMOL/L Potassium Level 3.6 3.6-5.0 MMOL/L Chloride Level 105 98-107 MMOL/L Carbon Dioxide Level 21 21-32 MMOL/L Anion Gap 12 5-14 MMOL/L Blood Urea Nitrogen 8 7-18 MG/DL Creatinine 0.66 0.60-1.30 MG/DL Estimat Glomerular Filtration Rate 126 BUN/Creatinine Ratio 12 Glucose Level 88 70-105 MG/DL Calcium Level 8.7 8.5-10.1 MG/DL My Orders Orders - GUZMAN BARNES MD Ua Culture If Indicated (01/27/22 10:05) Urine Bedside (01/27/22 10:05) Basic Metabolic Panel (01/27/22 10:13) Cbc With Automated Diff (01/27/22 10:13) Ct Abdomen/Pelvis Wo (01/27/22 10:13) Morphine Injection (Morphine Injection (01/27/22 10:13) Ondansetron Injection (Zofran Injectio (01/27/22 10:15) Tamsulosin Capsule (Flomax Capsule) (01/27/22 10:13) Urine Culture (01/27/22 10:07) Ceftriaxone 1 Gm Pre-Mix (Rocephin 1 Gm (01/27/22 10:43) Ketorolac Injection (Toradol Injection) (01/27/22 11:00) Fentanyl Inj (Sublimaze Injection) (01/27/22 11:00) Medications Given in ED Current Medications Medications Dose Ordered Sig/Christofer Route Start Time Stop Time Status Last Admin Dose Admin Fentanyl Citrate 50 mcg ONCE ONCE IVP 01/27/22 11:00 01/27/22 11:01 DC 01/27/22 10:57 50 MCG Ketorolac Tromethamine 15 mg ONCE ONCE IVP 01/27/22 11:00 01/27/22 11:01 DC 01/27/22 10:56 15 MG Ondansetron HCl 4 mg ONCE ONCE IVP 01/27/22 10:15 01/27/22 10:16 DC 01/27/22 10:20 4 MG Progress Progress Note : Progress Note 26-year-old female with above history coming in due to left flank pain. ABCs were intact and vitals were stable on presentation. Physical exam with left flank tenderness, no abdominal tenderness. An IV was placed and basic labs were obtained including urinalysis and test. Urine concerning for infection, also blood which would be consistent with a passing kidney stone. CT abdomen and pelvis without contrast ordered as well. Given morphine initially, had more pain later and required IV fentanyl. She states she is allergic to ibuprofen, but on chart review she has tolerated Toradol even recently. We will give her Toradol to also help with her symptoms. Urine concerning for infection, given ceftriaxone. CT with 2 kidney stones on the left that she is passing. I believe she stable for discharge with outpatient follow-up. She was sent home with strict return precautions. Diagnostic Imaging Diagonstic Imaging: CT (abd/pelvis) Comments NAME: EVELYN PATE [facility] REC#: [id number] PT STATUS: REG ER : 1995 PHYSICIAN: GUZMAN BARNES MD ADMIT DATE: 01/27/22/ER FS Draft Date of Exam:01/27/22 CT ABDOMEN/PELVIS WO PROCEDURE: CT abdomen and pelvis without contrast. TECHNIQUE: Multiple contiguous axial images were obtained through the abdomen and pelvis without the use of intravenous contrast. Auto Exposure Controls were utilized during the CT exam to meet ALARA standards for radiation dose reduction. INDICATION: Left flank pain and hematuria. Comparison is made with prior CT 06/01/2021. FINDINGS: The lung bases are clear. The liver is unremarkable. The gallbladder is surgically absent. No biliary ductal dilatation is seen. The pancreas and spleen are unremarkable. No adrenal mass is detected. No renal calculi are detected. There are two calcific densities adjacent to one another in the left pelvis in the region of the distal left ureter, each approximately 4 mm in size. These likely represent calculi noted in the left kidney on prior CT and are now distal ureteric in location just proximal to the UVJ. There is some mild periureteral inflammatory stranding, but no significant hydronephrosis is present. The aorta is nonaneurysmal. Bowel loops are normal in caliber. There is no obstruction. Moderate stool in the colon is noted. There is no free fluid detected. The uterus is unremarkable. IMPRESSION: 1. There are two 4 mm distal left ureteric calculi present just above the UVJ. There is some left periureteral inflammatory stranding, but no significant hydroureteronephrosis is identified. 2. Moderate stool suggests constipation. Dictated on workstation # [id number] Dict: 01/27/22 1050 Trans: 01/27/22 1103 [id number] Interpreted by: MAURICIO GREENWOOD MD Electronically signed by: Departure Impression Primary Impression: Ureterolithiasis Disposition: HOME, SELF-CARE Condition: Stable Departure-Patient Inst. Decision time for Depature: 11:20 Referrals: ALEXA VAZQUEZ DO (PCP) Primary Care Physician CARLITOS VITALE MD Patient Instructions: Kidney Stones (DC) Add. Discharge Instructions: You are passing to 4 mm kidney stones on the left. Take the pain medicine as needed at home as well as the tamsulosin which in theory should help them pass. Follow-up with Dr. Coy graves in [place] who is the urologist, or the urologist of your choice. You will also be on antibiotics for the next week. Scripts Ketorolac Tromethamine (Ketorolac Tromethamine) 10 Mg Tablet 10 MG PO Q8H for 3 Days, #9 TAB Prov: GUZMAN BARNES MD 01/27/22 Acetaminophen (Tylenol Extra Strength) 500 Mg Tablet 1000 MG PO Q6H for 7 Days, #56 TAB Prov: GUZMAN BARNES MD 01/27/22 Tamsulosin HCl (Flomax) 0.4 Mg Cap 0.4 MG PO DAILY for 14 Days, #14 CAP Prov: GUZMAN BARNES MD 01/27/22 Ondansetron (Ondansetron Odt) 4 Mg Tab.rapdis 4 MG SL Q6H PRN for NAUSEA/VOMITING for 5 Days, #20 TAB Prov: GUZMAN BARNES MD 01/27/22 Oxycodone HCl (Oxycodone HCl) 5 Mg Tablet 5 MG PO Q6H PRN for PAIN-SEVERE (8-10) for 3 Days, #12 TAB Prov: GUZMAN BARNES MD 01/27/22 Cefdinir (Cefdinir) 300 Mg Capsule 300 MG PO BID for 7 Days, #14 CAP 0 Refills Prov: GUZMAN BARNES MD 01/27/22 GUZMAN BARNES MD Jan 27, 2022 10:32
[2022-01-27 10:41] LABS: CALCIUM 8.7 MG/DL (8.5-10.1); CREATININE SERUM 0.66 MG/DL (0.60-1.30); POTASSIUM 3.6 MMOL/L (3.6-5.0)
[2022-01-27] MEDS ORDERED: cefTRIAXone 1 GM PRE-MIX 50 ML IV STA (10:43)
[2022-01-27] MEDS ORDERED: fentaNYL INJ 100 MCG/2 ML AMP IVP ONE (11:00)
[2022-01-27] MEDS ORDERED: KETOROLAC 30 MG/ML VIAL IVP ONE (11:00)
--- NOTE | 2022-01-27 11:03 | Diagnostic Imaging Report ---
PROCEDURE: CT abdomen and pelvis without contrast. TECHNIQUE: Multiple contiguous axial images were obtained through the abdomen and pelvis without the use of intravenous contrast. Auto Exposure Controls were utilized during the CT exam to meet ALARA standards for radiation dose reduction. INDICATION: Left flank pain and hematuria. Comparison is made with prior CT 06/01/2021. FINDINGS: The lung bases are clear. The liver is unremarkable. The gallbladder is surgically absent. No biliary ductal dilatation is seen. The pancreas and spleen are unremarkable. No adrenal mass is detected. No renal calculi are detected. There are two calcific densities adjacent to one another in the left pelvis in the region of the distal left ureter, each approximately 4 mm in size. These likely represent calculi noted in the left kidney on prior CT and are now distal ureteric in location just proximal to the UVJ. There is some mild periureteral inflammatory stranding, but no significant hydronephrosis is present. The aorta is nonaneurysmal. Bowel loops are normal in caliber. There is no obstruction. Moderate stool in the colon is noted. There is no free fluid detected. The uterus is unremarkable. IMPRESSION: 1. There are two 4 mm distal left ureteric calculi present just above the UVJ. There is some left periureteral inflammatory stranding, but no significant hydroureteronephrosis is identified. 2. Moderate stool suggests constipation. Dictated by: Dictated on workstation # [id number]
[2022-01-27] MEDS ORDERED: CEFD300C3 PO (11:12)
[2022-01-27] MEDS ORDERED: OXYC5TAB PO (11:12)
[2022-01-27] MEDS ORDERED: ONDA4TAB11 SL (11:12)
[2022-01-27] MEDS ORDERED: TMSL.4C PO (11:12)
[2022-01-27] MEDS ORDERED: ACET-2267 PO (11:12)
[2022-01-27] MEDS ORDERED: KETO10TA PO (11:20)
[2022-01-27] MEDS ORDERED: HYDROmorphone 2 MG/ML VIAL (DILAUDID) IV ONE (11:30)
[2022-01-27 12:11] VITALS: BP 118/76
== END 2022-01-27 11:35 | disposition home or self-care (01) ==
LOC: EDUNIT# 10:00 → ER FS 10:02
DX: N20.1 Calculus of ureter (principal); Z87.440 Personal history of urinary (tract) infections; Z88.1 Allergy status to other antibiotic agents; Z88.6 Allergy status to analgesic agent; Z28.310 Unvaccinated for COVID-19
CPT/HCPCS: 36415; 74176; 80048; 81000; 84703; 85025; 87088

== ENCOUNTER 2022-08-26 05:33 | Outpatient (CLI) | payer MEDICAID ==
[~2022-08-26] VITALS: Ht 165.1 cm; Wt 98.2 kg
[~2022-08-26 05:33] MED LIST changes: +ACET-2267 PO; +CEFD300C3 PO; +KETO10TA PO; +ONDA4TAB11 SL; +OXYC5TAB PO
[2022-08-26] MEDS ORDERED: ZOLP5TAB7 PO (10:23)
[2022-08-26] MEDS ORDERED: NAPR-1070 PO (10:23)
== END 2022-08-26 11:29 | disposition home or self-care (01) ==
LOC: PREOP 05:33
PROVIDERS: ATTEND Obstetrics & Gynecology
DX: Z01.818 Encounter for other preprocedural examination (principal)

== ENCOUNTER 2022-09-02 07:35 | Day surgery (SDC) | payer BC, MEDICAID ==
[~2022-09-02] VITALS: Ht 165.1 cm; Wt 98.2 kg
[2022-09-02] VITALS (12 sets, daily range): BP systolic 108–129; BP diastolic 51–84
[~2022-09-02 07:35] MED LIST changes: +NAPR-1070 PO; +ZOLP5TAB7 PO
[2022-09-02] MEDS ORDERED: BUPIVACAINE 0.25% 30 ML (SENSORCAINE) VIAL ONE (07:47)
[2022-09-02] MEDS ORDERED: proPOfol 200 MG/20 ML (DIPRIVAN) VIAL IV ONE (08:28)
[2022-09-02] MEDS ORDERED: MIDAZOLAM 2 MG/2 ML (VERSED) VIAL ONE (08:28)
[2022-09-02] MEDS ORDERED: fentaNYL INJ 100 MCG/2 ML AMP ONE (08:28)
[2022-09-02] MEDS ORDERED: LIDOCAINE PF 2% 5 ML (XYLOCAINE) VIAL ONE (08:28)
[2022-09-02] MEDS ORDERED: ONDANSETRON 4 MG/2 ML (SDV) Z0FRAN ONE (08:28)
[2022-09-02] MEDS ORDERED: GLYCOPYRROLATE 0.2 MG/ML (ROBINUL) 2 ML VIAL ONE (08:28)
[2022-09-02] MEDS ORDERED: NEOSTIGMINE (BLOXIVERZ ) 1 MG/1ML 10 ML VIAL ONE (08:28)
[2022-09-02] MEDS ORDERED: ROCURONIUM 50 MG/5 ML (ZEMURON) VIAL IV ONE (08:28)
[2022-09-02 08:38] LABS: BASOPHILS % (AUTO) 0 % (0-10); EOSINOPHILS # (AUTO) 0.2 10^3/uL (0.0-0.3); EOSINOPHILS % (AUTO) 2 % (0-10); HEMATOCRIT 35 % (35-52); HEMOGLOBIN 11.1 g/dL (11.5-16.0); LYMPHOCYTES # (AUTO) 2.6 10^3/uL (1.0-4.0); LYMPHOCYTES % (AUTO) 27 % (12-44); MEAN CORPUSCULAR HEMOGLOBIN 21 pg (25-34); MEAN CORPUSCULAR HGB CONC 31 g/dL (32-36); MEAN CORPUSCULAR VOLUME 68 fL (80-99); MEAN PLATELET VOLUME 9.3 fL (9.0-12.2); MONOCYTES # (AUTO) 0.5 10^3/uL (0.0-1.0); MONOCYTES % (AUTO) 5 % (0-12); NEUTROPHILS # (AUTO) 6.4 10^3/uL (1.8-7.8); NEUTROPHILS % (AUTO) 65 % (42-75); PLATELET COUNT 392 10^3/uL (130-400); WHITE BLOOD COUNT 9.8 10^3/uL (4.3-11.0)
[2022-09-02] MEDS ORDERED: LACTATED RINGERS 1,000 ML IV PRN (09:00)
--- NOTE | 2022-09-02 09:48 | Progress Note-Pre Operative ---
Pre-Operative Progress Note Date of Available H&P: September 02, 2022 Date H&P Reviewed: September 02, 2022 Time H&P Reviewed: 09:45 History & Physical: H&P Reviewed, Patient Examed Pre-Operative Diagnosis: CPP, Dysmenorrhea, Dyspareunia DIOMEDES IVAN DO September 02, 2022 09:48
--- NOTE | 2022-09-02 09:50 | Discharge Inst-Women's Service ---
Discharge Inst-Women's Serv Depart Medication/Instructions New, Converted or Re-Newed RX: Transmitted to Pharmacy Problems Reviewed?: Yes Consults/Follow Up Additional Follow Up: Yes Activity Activity: Activity as Tolerated Driving Instructions: No Driving for 1 Week NO SMOKING: NO SMOKING Nothing Inside Vagina: No Douching, No Igo, No Tampons Diet Discharge Diet: No Restrictions Symptoms to Report to : Bleeding Excessive, Pain Increased, Fever Over 101 Degrees F, Vaginal Bleeding Increase, Questions/Concerns For Any Problems or Questions: Contact Your Physician Skin/Wound Care Infection Signs and Symptoms: Increased Redness, Foul Odor of Wound, Increased Drainage, Skin Itchy or Has a Rash, Increased Swelling, Temperature Above 101 F Operative Area Clean and Dry: Keep Incision Clean/Dry Stitches/Sublette/Dermabond: Dermabond, Care of Stitches Bathing Instructions: DIOMEDES Mares DO September 02, 2022 09:50
[2022-09-02] MEDS ORDERED: ACHD5005 PO (09:51)
[2022-09-02] MEDS ORDERED: HYDROcodone/APAP 5 MG/325 MG (LORTAB) TAB PO PRN (10:00)
[2022-09-02] MEDS ORDERED: KETOROLAC 30 MG/ML VIAL IVP ONE (10:00)
[2022-09-02] MEDS ORDERED: D5 LR IV SOLUTION 1,000 ML IV SCH (10:00)
[2022-09-02] MEDS ORDERED: ONDANSETRON 4 MG/2 ML (SDV) Z0FRAN IVP PRN ×2 (10:00→10:45)
[2022-09-02] MEDS ORDERED: HYDROmorphone 2 MG/ML VIAL (DILAUDID) ONE (10:13)
[2022-09-02] MEDS ORDERED: SEVOFLURANE (ULTANE) 15 ML INHAL SOLN ONE (10:27)
[2022-09-02] MEDS ORDERED: morphine INJ 10 MG/ML 1ML (SYR OR VIAL) IVP ONE (10:45)
[2022-09-02] MEDS ORDERED: HYDROmorphone 2 MG/ML VIAL (DILAUDID) IV ONE (10:45)
--- NOTE | 2022-09-02 11:04 | Anesthesia-General Post-Op ---
General Patient Condition Mental Status/LOC: Same as Preop Cardiovascular: Satisfactory Nausea/Vomiting: Absent Respiratory: Satisfactory Pain: Controlled Complications: Absent Post Op Complications Complications None Follow Up Care/Instructions Patient Instructions None needed. Anesthesia/Patient Condition Patient Condition Patient is awake in PACU and doing well, no complaints, stable vital signs, no apparent adverse anesthesia problems. No complications reported per nursing. DERECK CLEMENTE DO September 02, 2022 11:03
[2022-09-02] MEDS ORDERED: diphenhydrAMINE 25 MG TAB (BENADRYL) PO ONE ×2 (12:09→12:15)
--- NOTE | 2022-09-02 16:39 | OPERATIVE REPORT ---
PREOPERATIVE DIAGNOSES: 1. A 26-year-old female with chronic pelvic pain. 2. Dyspareunia. 3. Dysmenorrhea. POSTOPERATIVE DIAGNOSES: 1. A 26-year-old female with chronic pelvic pain. 2. Dyspareunia. 3. Dysmenorrhea. 4. Right ovarian cyst and endometriosis implants of the posterior cul-de-sac. SURGEON: Mckinley Morse DO WET CHEMISTRY ANALYST: Arabella Magallon DNP was necessary for manipulation and retraction throughout the procedure. ANESTHESIA: General endotracheal. ESTIMATED BLOOD LOSS: Minimal. URINE OUTPUT: 100 mL clear at the end of the procedure. FLUIDS: 800 mL of lactated Ringer's solution. FINDINGS: Grossly normal-appearing bilateral fallopian tubes, normal appearing left ovary, right ovary has a large cystic structure associated with an approximately 3-4 cm in diameter. Grossly normal appearing anterior cul-de-sac. Bilateral ovarian fossa are grossly normal. There is a dense darkened endometriosis implant area noted in the posterior cul-de-sac with no surrounding excrescences. SPECIMEN SENT: Peritoneal biopsy, posterior cul-de-sac. INDICATIONS FOR PROCEDURE: This 26-year-old female patient had sought care in my office. She had been dealing with chronic pelvic pain for quite some time. She has tried more conservative measures in the past including oral contraceptive pills, Depo-Provera and even an IUD placement. After all of these failed to help with her cyclical pain that came with. She finally had decided to proceed with laparoscopic evaluation of her ongoing pain. We discussed clinically she most likely had a diagnosis of endometriosis; however, this could be confirmed with laparoscopy. Risks of procedure were discussed with the patient in detail including risk of bleeding, infection, damage to surrounding structures including but not limited to bowel, bladder, ureter, kidneys, possible need for operation, postoperative complications that may occur, recovery timeframe, risk from anesthesia, possible loss of fertility and even . After everything was discussed with the patient in detail, a consent was obtained, the patient was taken to the operating room. OPERATIVE REPORT IN DETAIL: Once in the operating room, general anesthesia was administered and found to be adequate. She was placed in dorsal lithotomy position, prepped and draped in normal sterile fashion. A timeout was performed. A Majano catheter was placed using sterile technique. A weighted speculum inserted to the patient's vagina. Right angle retractor was utilized. Cervix was grasped at 12 o'clock position using a long Allis clamp. I then placed a Kronner uterine manipulator to a depth of 8 cm deploying the balloon within the uterus. I removed all the other instruments from the patient's vagina, performed change of gloves, turned my attention to the abdomen where subcostally at the midclavicular line on the left side, I introduced the Veress needle to skin until correct placement was confirmed using saline drop test. An opening pressure of 5 mmHg was noted. I proceeded with CO2 insufflation to max pressure of 15 mmHg, at which point I make a 5 mm infraumbilical incision with a knife and direct a blunt laparoscopic trocar through the incision until intraperitoneal placement was confirmed using the laparoscope. There was no evidence of damage from entry site. There is no evidence of damage upon the Veress entry site in the left upper quadrant and the Veress was then removed at that point. I then had the patient placed in steep Trendelenburg where I am able to visualize all my pelvic anatomy as defined in my findings above. I placed suprapubic trocar, 5 mm trocar under direct visualization laparoscope. Once this was in place, I am able to use a hook cautery in order to cauterize all the margins of endometriosis implants and able to liberate and excise a small portion of peritoneal tissue collected for biopsied confirmation. I then also opened the right ovarian cyst using the hook cautery and drained clear fluid from this. There is no active bleeding noted from any of my dissection planes. After this was completed, I then copiously irrigated the pelvis using normal saline. Once again, there was no active bleeding noted from any of my dissection planes. I then had the patient taken out of steep Trendelenburg where I removed the suprapubic trocar under direct visualization of laparoscope. The infraumbilical trocars left in place to release the remainder of insufflation and to introduce 10 mL of 0.25% Marcaine through peritoneal cavity for postoperative pain management. I then removed this trocar as well. The skin reapproximated using Dermabond. Band-Aids were placed over the incisions. Majano catheter was removed at the end of the procedure. The patient tolerated the procedure well and was taken to recovery area in stable condition after Kronner uterine manipulator was removed. Lap and sponge counts were correct at the end of the procedure. Instrument counts correct as well. Job ID: [id number] DocumentID: [id number] Dictated Date: 09/02/2022 10:33:20 Radio Announcer Date: 09/02/2022 16:38:00 Dictated By: DO BRANDIN LUND
== END 2022-09-02 13:19 | disposition home or self-care (01) ==
LOC: SDC 07:35
PROVIDERS: ATTEND Obstetrics & Gynecology
DX: N80.329 Endometriosis of the posterior cul-de-sac, unspecified depth (principal); G89.29 Other chronic pain; N94.10 Unspecified dyspareunia; N94.6 Dysmenorrhea, unspecified; N92.0 Excessive and frequent menstruation with regular cycle; N83.201 Unspecified ovarian cyst, right side; E66.9 Obesity, unspecified; Z68.36 Body mass index [BMI] 36.0-36.9, adult; Z87.891 Personal history of nicotine dependence; Z87.42 Personal history of other diseases of the female genital tract; Z28.310 Unvaccinated for COVID-19
CPT/HCPCS: 36415; 84703; 85025; 86850; 86900; 86901; 87081; 88305

== ENCOUNTER 2023-03-09 10:47 | Emergency (ER) | payer BC, MEDICAID ==
[~2023-03-09] VITALS: Ht 165 cm; Wt 91.0 kg
[~2023-03-09 10:47] MED LIST changes: +FAMO-356 PO; -FAMO20TA3 PO
[2023-03-09 10:56] VITALS: BP 151/84
--- NOTE | 2023-03-09 11:04 | ED General ---
General Chief Complaint: General Problems/Pain Stated Complaint: VAGINAL BLEEDING POST IUD REMOVAL Source of Information: Patient Exam Limitations: No Limitations History of Present Illness Date Seen by Provider: Mar 09, 2023 Time Seen by Provider: 10:56 Initial Comments 27-year-old female presents emergency department today for vaginal bleeding. She is reportedly been on her period for 8 weeks. She had an IUD removed on Thursday and states her vaginal bleeding increased. She states she is slightly lightheaded. No abdominal pain. All other systems reviewed and negative except documented per HPI. Voice recognition software was used to help create this chart Allergies and Home Medications Allergies Coded Allergies: ibuprofen (Verified Allergy, Mild, HIVES, 08/26/22) amoxicillin (Verified Allergy, Unknown, 08/26/22) swollen lips, hives Patient Home Medication List Home Medication List Reviewed: Yes Hydrocodone/Acetaminophen (Hydrocodone-Acetamin 5-325 mg) 5 Mg-325 Mg Tablet, 1- 2 EA PO Q6HR PRN for PAIN-MODERATE (5-7) Prescribed by: DIOMEDES IVAN on 09/02/22 0952 Naproxen Sodium (Anaprox Ds) 550 Mg Tablet, 550 MG PO BID PRN for PAIN, (Reported) Entered as Reported by: Kaur Bell on 08/26/22 1023 Ondansetron (Ondansetron Odt) 4 Mg Tab.rapdis, 4 MG PO Q6H PRN for NAUSEA/ VOMITING Prescribed by: BARRINGTON ERVIN on 12/25/20 1230 Zolpidem Tartrate (Zolpidem Tartrate) 5 Mg Tablet, 5 MG PO HS PRN for INSOMNIA, (Reported) Entered as Reported by: Kaur Bell on 08/26/22 1023 Review of Systems Review of Systems Constitutional: see HPI Past Shnwzdt-Hbattq-Lljvup Hx Patient Social History Tobacco Use?: No Use of E-Cig and/or Vaping dev: Yes E-Cig or Vaping type used: Nicotine Substance use?: No Alcohol Use?: No Pt feels they are or have been: No Immunizations Up To Date Tetanus Booster (TDap): Unknown PED Vaccines UTD: No First/Initial COVID19 Vaccinat: NO Second COVID19 Vaccination Red: NO Third COVID19 Vaccination Date: NO Seasonal Allergies Seasonal Allergies: Yes Past Medical History Surgeries: Yes (DX LAP - ENDOMETRIOSIS) Gallbladder Respiratory: No Currently Using CPAP: No Currently Using BIPAP: No Cardiac: No Neurological: Yes Headaches /Migraines Female Reproductive Disorders: Menstrual Problems, Endometriosis, Ovarian Cyst Sexually Transmitted Disease: No HIV/AIDS: No Genitourinary: Yes Kidney Stones, UTI-Chronic Gastrointestinal: Yes Gastroesophageal Reflux, Chronic Diarrhea, Gall Bladder Disease Musculoskeletal: No Endocrine: No HEENT: No Loss of Vision: Denies Hearing Impairment: Denies Cancer: No Psychosocial: Yes Anxiety, Depression Integumentary: No Blood Disorders: Yes (BETA THALASEMIA TRAIT) Adverse Reaction/Blood Tranf: No Family Medical History Patient reports no known family medical history. Physical Exam Vital Signs Vital Signs - First Documented 03/09/23 10:56 Temp 36.7 Pulse 23 Resp 16 B/P (MAP) 151/84 (106) Pulse Ox 98 O2 Delivery Room Air Capillary Refill : Height, Weight, BMI Height: 5'5.00" Weight: 230lbs. 0.0oz. [id number]; 36.02 BMI Method: General Appearance: No Apparent Distress, WD/WN HEENT: Normal ENT Inspection, Pharynx Normal Neck: Full Range of Motion, Normal Inspection, Non Tender, Supple Respiratory: Chest Non Tender, Lungs Clear, Normal Breath Sounds, No Accessory Muscle Use, No Respiratory Distress Cardiovascular: Regular Rate, Rhythm, No Murmur, Normal Peripheral Pulses Gastrointestinal: Normal Bowel Sounds, No Organomegaly, Non Tender, Soft Extremity: Normal Capillary Refill, Normal Inspection Neurologic/Psychiatric: Alert, Oriented x3 Skin: Normal Color, Warm/Dry Progress/Results/Core Measures Suspected Sepsis SIRS Temperature: Pulse: Respiratory Rate: Laboratory Tests 03/09/23 11:03: White Blood Count 8.1 Blood Pressure / Mean: Laboratory Tests 03/09/23 11:03: Platelet Count 379 Results/Orders Lab Results Laboratory Tests Test 03/09/23 11:03 Range/Units White Blood Count 8.1 4.3-11.0 10^3/uL Red Blood Count 5.26 H 3.80-5.11 10^6/uL Hemoglobin 11.2 L 11.5-16.0 g/dL Hematocrit 36 35-52 % Mean Corpuscular Volume 69 L 80-99 fL Mean Corpuscular Hemoglobin 21 L 25-34 pg Mean Corpuscular Hemoglobin Concent 31 L 32-36 g/dL Red Cell Distribution Width 14.2 10.0-14.5 % Platelet Count 379 130-400 10^3/uL Mean Platelet Volume 8.7 L 9.0-12.2 fL Immature Granulocyte % (Auto) 0 % Neutrophils (%) (Auto) 53 42-75 % Lymphocytes (%) (Auto) 40 12-44 % Monocytes (%) (Auto) 4 0-12 % Eosinophils (%) (Auto) 2 0-10 % Basophils (%) (Auto) 1 0-10 % Neutrophils # (Auto) 4.3 1.8-7.8 10^3/uL Lymphocytes # (Auto) 3.3 1.0-4.0 10^3/uL Monocytes # (Auto) 0.3 0.0-1.0 10^3/uL Eosinophils # (Auto) 0.2 0.0-0.3 10^3/uL Basophils # (Auto) 0.1 0.0-0.1 10^3/uL Immature Granulocyte # (Auto) 0.0 0.0-0.1 10^3/uL My Orders Orders - DOUG HERNANDEZ DO Cbc And Automated Diff (03/09/23 10:56) Vital Signs/I&O 03/09/23 10:56 Temp 36.7 Pulse 23 Resp 16 B/P (MAP) 151/84 (106) Pulse Ox 98 O2 Delivery Room Air Capillary Refill : Departure Communication (Admissions) Patient is hemodynamically stable. Hemoglobin seems to be at its baseline. Vaginal exam reveals a small laceration just lateral to the os at about the 4 o'clock position. There is a small amount of bleeding here. There is some bleeding from the os itself as well. No significant bleeding identified. With her blood count stable I recommend she discharge home and follow-up with her OB doctor if her bleeding persists. I do believe that the laceration will likely heal on its own but did advise she could contact OB if it did not. Impression Primary Impression: Vaginal bleeding Disposition: HOME, SELF-CARE Condition: Stable Departure-Patient Inst. Referrals: ALEXA VAZQUEZ DO (PCP/Family) Primary Care Physician Patient Instructions: Heavy Periods ED Add. Discharge Instructions: As discussed there is a small cut on your cervix which is likely the cause of the increased bleeding. It looks as though it is starting to heal and should stop bleeding in the next 24 to 48 hours. Your blood counts are at her baseline, the same as they were when you were seen here in August. Increase your fluids at home and rest. Follow-up with your OB doctor should your bleeding persist. Return to the emergency department for any severe shortness of breath, severe dizziness or for symptoms change in any way concerning to you. All discharge instructions reviewed with patient and/or family. Voiced understanding. DOUG HERNANDEZ DO Mar 09, 2023 11:04
[2023-03-09 11:09] LABS: BASOPHILS # (AUTO) 0.1 10^3/uL (0.0-0.1); BASOPHILS % (AUTO) 1 % (0-10); EOSINOPHILS # (AUTO) 0.2 10^3/uL (0.0-0.3); EOSINOPHILS % (AUTO) 2 % (0-10); HEMATOCRIT 36 % (35-52); HEMOGLOBIN 11.2 g/dL (11.5-16.0); LYMPHOCYTES # (AUTO) 3.3 10^3/uL (1.0-4.0); LYMPHOCYTES % (AUTO) 40 % (12-44); MEAN CORPUSCULAR HEMOGLOBIN 21 pg (25-34); MEAN CORPUSCULAR HGB CONC 31 g/dL (32-36); MEAN CORPUSCULAR VOLUME 69 fL (80-99); MEAN PLATELET VOLUME 8.7 fL (9.0-12.2); MONOCYTES # (AUTO) 0.3 10^3/uL (0.0-1.0); MONOCYTES % (AUTO) 4 % (0-12); NEUTROPHILS # (AUTO) 4.3 10^3/uL (1.8-7.8); NEUTROPHILS % (AUTO) 53 % (42-75); PLATELET COUNT 379 10^3/uL (130-400); WHITE BLOOD COUNT 8.1 10^3/uL (4.3-11.0)
== END 2023-03-09 11:26 | disposition home or self-care (01) ==
LOC: EDUNIT# 10:47 → ER FS 10:49
DX: N93.9 Abnormal uterine and vaginal bleeding, unspecified (principal)
CPT/HCPCS: 36415; 85025; 99282